=== PATIENT | female | born 1985 | race Two or more races ===

== ENCOUNTER → 2016-04-15 | Outpatient (CLI) | payer MEDICAID ==
[2016-04-15 14:31] LABS: APPEARANCE,URINE SLIGHTLY-CLOUDY; BILIRUBIN,URINE NEGATIVE (NEGATIVE); GLUCOSE, URINE NEGATIVE (NEGATIVE); KETONES,URINE TRACE mg/dL (NEGATIVE); LEUKOCYTE ESTERASE,URINE TRACE (NEGATIVE); NITRITE,URINE NEGATIVE (NEGATIVE); PROTEIN,URINE 30 mg/dL (NEGATIVE); URINE SPECIFIC GRAVITY 1.019; UROBILINOGEN,URINE NEGATIVE mg/dL (<2.0)
[2016-04-15 15:03] LABS: ANION GAP 14 (5-19); BLOOD UREA NITROGEN 7 mg/dL (7-20); CALCIUM 9.5 mg/dL (8.4-10.2); CARBON DIOXIDE 21 mmol/L (22-30); CHLORIDE 103 mmol/L (98-107); CREATININE RESULT 0.42 mg/dL (0.52-1.25); GLUCOSE 100 mg/dL (75-110); POTASSIUM 3.6 mmol/L (3.6-5.0); SODIUM 138.1 mmol/L (137-145)
[2016-04-17 09:40] LABS: CREATININE URINE 157.3 mg/dL (Not Estab.)
== END ==
LOC: OD 13:32
PROVIDERS: ATTEND Internal Medicine Nephrology
DX: N07.9 Hereditary nephropathy, not elsewhere classified with unspecified morphologic lesions (principal); N18.1 Chronic kidney disease, stage 1; R80.1 Persistent proteinuria, unspecified; R31.9 Hematuria, unspecified
CPT/HCPCS: 36415; 80048; 81001; 82570; 84156

== ENCOUNTER 2016-04-30 12:05 | Outpatient (CLI) | payer MEDICAID ==
[~2016-04-30 12:05] MED LIST: FERRIC CARBOXYMALTOSE 750 MG in NORMAL SALINE 250 ML IV PRN; NORMAL SALINE 250 ML IV PRN
[2016-04-30 12:48] VITALS: BP 110/67
== END 2016-04-30 13:22 | disposition home or self-care (01) ==
LOC: II 12:05 → 5TH 12:11 → II 13:22
PROVIDERS: ATTEND Internal Medicine
PROC: 3E033GC Introduction of Other Therapeutic Substance into Peripheral Vein, Percutaneous Approach (ICD-10-PCS; principal; 2016-04-30)
DX: D50.8 Other iron deficiency anemias (principal); K90.9 Intestinal malabsorption, unspecified
CPT/HCPCS: 96365; J7050; J1439; 96367

== ENCOUNTER 2016-05-07 13:20 | Outpatient (CLI) | payer MEDICAID ==
[2016-05-07 13:28] VITALS: BP 111/60
== END 2016-05-07 13:53 | disposition home or self-care (01) ==
LOC: II 13:20 → 5TH 13:28 → II 13:53
PROVIDERS: ATTEND Internal Medicine
PROC: 3E033GC Introduction of Other Therapeutic Substance into Peripheral Vein, Percutaneous Approach (ICD-10-PCS; principal; 2016-05-07)
DX: D50.8 Other iron deficiency anemias (principal); K90.9 Intestinal malabsorption, unspecified
CPT/HCPCS: 96365; J7050; J1439

== ENCOUNTER 2016-06-13 11:35 | Outpatient (CLI) | payer MEDICAID ==
[2016-06-13 12:30] LABS: APPEARANCE,URINE CLEAR; BILIRUBIN,URINE NEGATIVE (NEGATIVE); GLUCOSE, URINE NEGATIVE (NEGATIVE); KETONES,URINE NEGATIVE (NEGATIVE); LEUKOCYTE ESTERASE,URINE NEGATIVE (NEGATIVE); NITRITE,URINE NEGATIVE (NEGATIVE); PROTEIN,URINE NEGATIVE (NEGATIVE); URINE SPECIFIC GRAVITY 1.013; UROBILINOGEN,URINE NEGATIVE mg/dL (<2.0)
[2016-06-13 12:44] LABS: URINE BARBITURATES SCREEN NEGATIVE; URINE METHADONE SCREEN NEGATIVE; URINE OPIATES LOW NEGATIVE; URINE PHENCYCLIDINE SCREEN NEGATIVE
--- NOTE | 2016-06-13 13:15 | Non Stress Test Report ---
Non Stress Test Datetime Report Generated by CPN: 06/13/2016 13:14 DEMOGRAPHIC EGA NST: 32.5 INDICATION Indication for Study: Ordered by Provider MONITORING Monitor Explained: Monitor Explained; Test Explained; Patient Verbalized Understanding Time on Monitor: 06/13/2016 11:56 Time off Monitor: 06/13/2016 12:53 NST Duration: 57 NST INTERVENTIONS NST Interventions: PO Hydration; Reposition Patient Physician Notified NST: H. Louis, CNM BABY A: [id number] BABY A Movement : Present Contraction Frequency : Irregular FHR Baseline : 135 Accelerations : 15X15 Decelerations : None Variability : Moderate 6-25bpm NST Review: Meets Criteria for Reactive NST NST Review and Verified By : Amina Eckert RN NST REPORT Report Trigger: Send Report
== END 2016-06-13 13:00 | disposition home or self-care (01) ==
LOC: LC 11:35
PROVIDERS: ATTEND Obstetrics & Gynecology
PROC: 4A1HXCZ Monitoring of Products of Conception, Cardiac Rate, External Approach (ICD-10-PCS; principal; 2016-06-13)
DX: O47.03 False labor before 37 completed weeks of gestation, third trimester (principal); Z3A.32 32 weeks gestation of pregnancy
CPT/HCPCS: 59025; 80307; 81001

== ENCOUNTER 2016-06-20 12:13 | Outpatient (CLI) | payer MEDICAID ==
--- NOTE | 2016-06-20 12:52 | Non Stress Test Report ---
Non Stress Test Datetime Report Generated by CPN: 06/20/2016 12:52 DEMOGRAPHIC EGA NST: 33.5 INDICATION Indication for Study (NST) Other: GDM MONITORING Monitor Explained: Monitor Explained; Test Explained; Patient Verbalized Understanding Time on Monitor: 06/20/2016 12:27 Time off Monitor: 06/20/2016 12:47 NST Duration: 20 NST INTERVENTIONS NST Interventions: PO Hydration Physician Notified NST: C. Mireles CNM BABY A Movement : Present Contraction Frequency : x2 with irritability FHR Baseline : 140 Accelerations : 15X15 Decelerations : None Variability : Moderate 6-25bpm NST Review: Meets Criteria for Reactive NST NST Review and Verified By : AAntonino Peterson RN NST Results: Reactive NST REPORT Report Trigger: Send Report
--- NOTE | 2016-06-20 15:54 | L&D Discharge Summary ---
OB Discharge Summary Datetime Report Generated by CPN: 06/20/2016 15:54 DISCHARGE DIAGNOSIS Diagnosis/Symptoms: Reassuring Surveillance - Annotate Details Diagnoses/Symptoms Other: Reactive NST Gestation: 32.5 Number of Babies in Womb: 1 Parity: 4 DIET/ACTIVITY/RESTRICTIONS Diet: Regular Activity: Normal Activity TEACHING/INSTRUCTIONS/REFERRALS Instructions Given To: Patient Instructions Understood: Patient Verbalized Understanding Referrals: None Educational Materials- Other: kick counts DISCHARGE INFORMATION Discharged AMA: No Discharge Date/Time: 06/20/2016 12:47 Discharged To: Home Discharge Provider Name: C. Mireles CNM Accompanied By: self Discharge Method: Ambulatory Condition: Stable FOLLOW UP INFORMATION Follow Up With: [facility] Follow Up On: As Scheduled Follow Up Phone Number: [facility] -
--- NOTE | 2016-06-25 22:49 | L&D Discharge Summary ---
OB Discharge Summary Datetime Report Generated by CPN: 06/25/2016 22:45 DISCHARGE DIAGNOSIS Diagnosis/Symptoms: Reassuring Surveillance - Annotate Details Diagnoses/Symptoms Other: Reactive NST Gestation: 33.5 Number of Babies in Womb: 1 Parity: 4 DIET/ACTIVITY/RESTRICTIONS Diet: Regular Activity: Normal Activity TEACHING/INSTRUCTIONS/REFERRALS Instructions Given To: Patient Instructions Understood: Patient Verbalized Understanding Referrals: None Educational Materials- Other: kick counts DISCHARGE INFORMATION Discharged AMA: No Discharge Date/Time: 06/20/2016 12:47 Discharged To: Home Discharge Provider Name: C. Mireles CNM Accompanied By: self Discharge Method: Ambulatory Condition: Stable FOLLOW UP INFORMATION Follow Up With: [facility] Follow Up On: As Scheduled Follow Up Phone Number: [facility] -
--- NOTE | 2016-06-25 22:49 | L&D General Admission ---
General Admit Datetime Report Generated by CPN: 06/25/2016 22:45 INFORMATION Patient Age: 31 (06/13/2016 11:35:QS system process) EDC: 08/03/2016 00:00 (06/13/2016 11:42:Mariely Carver RN) : 5 (06/13/2016 11:42:Mariely Carver RN) Para: 4 (06/13/2016 11:42:Mariely Carver RN) Term: 4 (06/13/2016 11:42:Mariely Carver RN) : 0 (06/13/2016 11:42:Mariely Carver RN) Spontaneous Abortions: 0 (06/13/2016 11:42:Mariely Carver RN) Induced Abortions: 0 (06/13/2016 11:42:Mariely Carver RN) Livin (06/13/2016 11:42:Mariely Carver RN) Cesareans: 0 (06/13/2016 11:42:Mariely Carver RN) VBACs: 0 (06/13/2016 11:42:Mariely Carver RN) Ectopic: 0 (06/13/2016 11:42:Mariely Carver RN) Multiple Births: 0 (06/13/2016 11:42:Mariely Carver RN) Baby, Number in Womb: 1 (06/13/2016 11:42:Mariely Carver RN) CARE Primary Ssis Ssrs Developer: [facility] (06/13/2016 11:42:Mariely Carver RN) Adequate Care: Yes (06/13/2016 11:42:Mariely Carver RN) Height (in): 63 (06/20/2016 12:34:QS system process) Height (in): 63 (06/13/2016 12:31:QS system process) Height (in): 63 (06/13/2016 11:50:QS system process) ALLERGIES Medication Allergy: No (06/13/2016 11:42:Mariely Carver RN) Medication Allergies: No Known Allergies (06/20/2016) (06/20/2016 12:33:QS system process) Medication Allergies: No Known Allergies (07/16/2010) (06/13/2016 11:35:QS system process) Latex Allergy: No Latex Allergies (06/13/2016 11:42:Mariely Carver RN) COMMUNICATION Primary Language: Syrian (06/13/2016 11:42:Mariely Carver RN) DEMOGRAPHICS Address: [address] [place] [id number] (06/13/2016 11:35:QS system process) Zipcode: [address] (06/13/2016 11:35:QS system process) Home (06/13/2016 11:35:QS system process) SSN: [id number] (06/13/2016 11:35:QS system process) Next of Kin Name: YENY ACEVEDO (06/13/2016 11:35:QS system process) Next of Kin (06/13/2016 11:35:QS system process) Next of Kin Relationship: SPO (06/13/2016 11:35:QS system process) Date of : 1985 (06/13/2016 11:35:QS system process) Marital Status: (06/13/2016 11:35:QS system process) Sex: Female (06/13/2016 11:35:QS system process) Race: Other (06/13/2016 11:35:QS system process) Ethnicity: or (06/13/2016 11:35:QS system process) Pentecostalism: None (06/13/2016 11:35:QS system process) DRUG AND ALCOHOL USE Alcohol: No (06/13/2016 11:42:Mariely Carver RN) Cigarettes: Never Smoker. [id number] (06/13/2016 11:42:Mariely Carver RN) Marijuana: No (06/13/2016 11:42:Mariely Carver RN) Cocaine: No (06/13/2016 11:42:Mariely Carver RN) Other Illicit Drugs: No (06/13/2016 11:42:Mariely Carver RN)
--- NOTE | 2016-06-26 04:49 | L&D Discharge Summary ---
OB Discharge Summary Datetime Report Generated by CPN: 06/26/2016 04:46 DISCHARGE DIAGNOSIS Diagnosis/Symptoms: Reassuring Surveillance - Annotate Details Diagnoses/Symptoms Other: Reactive NST Gestation: 33.5 Number of Babies in Womb: 1 Parity: 4 DIET/ACTIVITY/RESTRICTIONS Diet: Regular Activity: Normal Activity TEACHING/INSTRUCTIONS/REFERRALS Instructions Given To: Patient Instructions Understood: Patient Verbalized Understanding Referrals: None Educational Materials- Other: kick counts DISCHARGE INFORMATION Discharged AMA: No Discharge Date/Time: 06/20/2016 12:47 Discharged To: Home Discharge Provider Name: C. Mireles CNM Accompanied By: self Discharge Method: Ambulatory Condition: Stable FOLLOW UP INFORMATION Follow Up With: [facility] Follow Up On: As Scheduled Follow Up Phone Number: [facility] -
--- NOTE | 2016-06-26 04:49 | L&D General Admission ---
General Admit Datetime Report Generated by CPN: 06/26/2016 04:46 INFORMATION Patient Age: 31 (06/13/2016 11:35:QS system process) EDC: 08/03/2016 00:00 (06/13/2016 11:42:Mariely Carver RN) : 5 (06/13/2016 11:42:Mariely Carver RN) Para: 4 (06/13/2016 11:42:Mariely Carver RN) Term: 4 (06/13/2016 11:42:Mariely Carver RN) : 0 (06/13/2016 11:42:Mariely Carver RN) Spontaneous Abortions: 0 (06/13/2016 11:42:Mariely Carver RN) Induced Abortions: 0 (06/13/2016 11:42:Mariely Carver RN) Livin (06/13/2016 11:42:Mariely Carver RN) Cesareans: 0 (06/13/2016 11:42:Mariely Carver RN) VBACs: 0 (06/13/2016 11:42:Mariely Carver RN) Ectopic: 0 (06/13/2016 11:42:Mariely Carver RN) Multiple Births: 0 (06/13/2016 11:42:Mariely Carver RN) Baby, Number in Womb: 1 (06/13/2016 11:42:Mariely Carver RN) CARE Primary Circus Trainer: [facility] (06/13/2016 11:42:Mariely Carver RN) Adequate Care: Yes (06/13/2016 11:42:Mariely Carver RN) Height (in): 63 (06/20/2016 12:34:QS system process) Height (in): 63 (06/13/2016 12:31:QS system process) Height (in): 63 (06/13/2016 11:50:QS system process) ALLERGIES Medication Allergy: No (06/13/2016 11:42:Mariely Carver RN) Medication Allergies: No Known Allergies (06/20/2016) (06/20/2016 12:33:QS system process) Medication Allergies: No Known Allergies (07/16/2010) (06/13/2016 11:35:QS system process) Latex Allergy: No Latex Allergies (06/13/2016 11:42:Mariely Carver RN) COMMUNICATION Primary Language: Turkmen (06/13/2016 11:42:Mariely Carver RN) DEMOGRAPHICS Address: [address] [place] [id number] (06/13/2016 11:35:QS system process) Zipcode: [address] (06/13/2016 11:35:QS system process) Home (06/13/2016 11:35:QS system process) SSN: [id number] (06/13/2016 11:35:QS system process) Next of Kin Name: YENY ACEVEDO (06/13/2016 11:35:QS system process) Next of Kin (06/13/2016 11:35:QS system process) Next of Kin Relationship: SPO (06/13/2016 11:35:QS system process) Date of : 1985 (06/13/2016 11:35:QS system process) Marital Status: (06/13/2016 11:35:QS system process) Sex: Female (06/13/2016 11:35:QS system process) Race: Other (06/13/2016 11:35:QS system process) Ethnicity: or (06/13/2016 11:35:QS system process) Gnosticist: None (06/13/2016 11:35:QS system process) DRUG AND ALCOHOL USE Alcohol: No (06/13/2016 11:42:Mariely Carver RN) Cigarettes: Never Smoker. [id number] (06/13/2016 11:42:Mariely Carver RN) Marijuana: No (06/13/2016 11:42:Mariely Carver RN) Cocaine: No (06/13/2016 11:42:Mariely Carver RN) Other Illicit Drugs: No (06/13/2016 11:42:Mariely Carver RN)
--- NOTE | 2016-06-26 10:49 | L&D Discharge Summary ---
OB Discharge Summary Datetime Report Generated by CPN: 06/26/2016 10:45 DISCHARGE DIAGNOSIS Diagnosis/Symptoms: Reassuring Surveillance - Annotate Details Diagnoses/Symptoms Other: Reactive NST Gestation: 33.5 Number of Babies in Womb: 1 Parity: 4 DIET/ACTIVITY/RESTRICTIONS Diet: Regular Activity: Normal Activity TEACHING/INSTRUCTIONS/REFERRALS Instructions Given To: Patient Instructions Understood: Patient Verbalized Understanding Referrals: None Educational Materials- Other: kick counts DISCHARGE INFORMATION Discharged AMA: No Discharge Date/Time: 06/20/2016 12:47 Discharged To: Home Discharge Provider Name: C. Mireles CNM Accompanied By: self Discharge Method: Ambulatory Condition: Stable FOLLOW UP INFORMATION Follow Up With: [facility] Follow Up On: As Scheduled Follow Up Phone Number: [facility] -
--- NOTE | 2016-06-26 10:49 | L&D General Admission ---
General Admit Datetime Report Generated by CPN: 06/26/2016 10:45 INFORMATION Patient Age: 31 (06/13/2016 11:35:QS system process) EDC: 08/03/2016 00:00 (06/13/2016 11:42:Mariely Carver RN) : 5 (06/13/2016 11:42:Mariely Carver RN) Para: 4 (06/13/2016 11:42:Mariely Carver RN) Term: 4 (06/13/2016 11:42:Mariely Carver RN) : 0 (06/13/2016 11:42:Mariely Carver RN) Spontaneous Abortions: 0 (06/13/2016 11:42:Mariely Carver RN) Induced Abortions: 0 (06/13/2016 11:42:Mariely Carver RN) Livin (06/13/2016 11:42:Mariely Carver RN) Cesareans: 0 (06/13/2016 11:42:Mariely Carver RN) VBACs: 0 (06/13/2016 11:42:Mariely Carver RN) Ectopic: 0 (06/13/2016 11:42:Mariely Carver RN) Multiple Births: 0 (06/13/2016 11:42:Mariely Carver RN) Baby, Number in Womb: 1 (06/13/2016 11:42:Mariely Carver RN) CARE Primary Cellular Phone Repairer: [facility] (06/13/2016 11:42:Mariely Carver RN) Adequate Care: Yes (06/13/2016 11:42:Mariely Carver RN) Height (in): 63 (06/20/2016 12:34:QS system process) Height (in): 63 (06/13/2016 12:31:QS system process) Height (in): 63 (06/13/2016 11:50:QS system process) ALLERGIES Medication Allergy: No (06/13/2016 11:42:Mariely Carver RN) Medication Allergies: No Known Allergies (06/20/2016) (06/20/2016 12:33:QS system process) Medication Allergies: No Known Allergies (07/16/2010) (06/13/2016 11:35:QS system process) Latex Allergy: No Latex Allergies (06/13/2016 11:42:Mariely Carver RN) COMMUNICATION Primary Language: Israeli (06/13/2016 11:42:Mariely Carver RN) DEMOGRAPHICS Address: [address] [place] [address] (06/13/2016 11:35:QS system process) Zipcode: [address] (06/13/2016 11:35:QS system process) Home (06/13/2016 11:35:QS system process) SSN: [id number] (06/13/2016 11:35:QS system process) Next of Kin Name: YENY ACEVEDO (06/13/2016 11:35:QS system process) Next of Kin (06/13/2016 11:35:QS system process) Next of Kin Relationship: SPO (06/13/2016 11:35:QS system process) Date of : 1985 (06/13/2016 11:35:QS system process) Marital Status: (06/13/2016 11:35:QS system process) Sex: Female (06/13/2016 11:35:QS system process) Race: Other (06/13/2016 11:35:QS system process) Ethnicity: or (06/13/2016 11:35:QS system process) Mandaeism: None (06/13/2016 11:35:QS system process) DRUG AND ALCOHOL USE Alcohol: No (06/13/2016 11:42:Mariely Carver RN) Cigarettes: Never Smoker. [id number] (06/13/2016 11:42:Mariely Carver RN) Marijuana: No (06/13/2016 11:42:Mariely Carver RN) Cocaine: No (06/13/2016 11:42:Mariely Carver RN) Other Illicit Drugs: No (06/13/2016 11:42:Mariely Carver RN)
== END 2016-06-20 12:50 | disposition home or self-care (01) ==
LOC: LC 12:13
PROVIDERS: ATTEND Obstetrics & Gynecology
PROC: 4A1HXCZ Monitoring of Products of Conception, Cardiac Rate, External Approach (ICD-10-PCS; principal; 2016-06-20)
DX: Z34.93 Encounter for supervision of normal pregnancy, unspecified, third trimester (principal); Z36 Encounter for antenatal screening of mother; Z3A.33 33 weeks gestation of pregnancy
CPT/HCPCS: 59025

== ENCOUNTER 2016-06-26 12:02 | Outpatient (CLI) | payer MEDICAID ==
--- NOTE | 2016-06-26 13:48 | Non Stress Test Report ---
Non Stress Test Datetime Report Generated by CPN: 06/26/2016 13:48 DEMOGRAPHIC EGA NST: 34.4 INDICATION Indication for Study: Diabetes Mellitus; Ordered by Provider MONITORING Monitor Explained: Monitor Explained; Test Explained; Patient Verbalized Understanding Time on Monitor: 06/26/2016 12:21 Time off Monitor: 06/26/2016 13:37 NST Duration: 76 NST INTERVENTIONS NST Interventions: PO Hydration; Reposition Patient Physician Notified NST: P. Torres, CNM BABY A Movement : Present Contraction Frequency : Occassional FHR Baseline : 145 Accelerations : 15X15 Decelerations : None Variability : Moderate 6-25bpm NST Review: Meets Criteria for Reactive NST NST Review and Verified By : Jens Masterson RN NST Results: Reactive NST REPORT Report Trigger: Send Report
== END 2016-06-26 13:41 | disposition home or self-care (01) ==
LOC: LC 12:02
PROVIDERS: ATTEND Obstetrics & Gynecology
PROC: 4A1HXCZ Monitoring of Products of Conception, Cardiac Rate, External Approach (ICD-10-PCS; principal; 2016-06-26)
DX: O24.419 Gestational diabetes mellitus in pregnancy, unspecified control (principal); Z3A.34 34 weeks gestation of pregnancy
CPT/HCPCS: 59025; 82962

== ENCOUNTER 2016-07-02 14:23 | Outpatient (CLI) | payer MEDICAID ==
[2016-07-02 14:51] VITALS: BP 118/67
== END 2016-07-02 15:27 | disposition home or self-care (01) ==
LOC: II 14:23 → 5TH 14:24 → II 15:27
PROVIDERS: ATTEND Internal Medicine
PROC: 3E033GC Introduction of Other Therapeutic Substance into Peripheral Vein, Percutaneous Approach (ICD-10-PCS; principal; 2016-07-02)
DX: D50.8 Other iron deficiency anemias (principal); K90.9 Intestinal malabsorption, unspecified
CPT/HCPCS: 96367; J7050; J1439; 96374

== ENCOUNTER 2016-07-03 11:02 | Outpatient (CLI) | payer MEDICAID ==
[2016-07-03 13:01] LABS: APPEARANCE,URINE CLEAR; BILIRUBIN,URINE NEGATIVE (NEGATIVE); GLUCOSE, URINE NEGATIVE (NEGATIVE); KETONES,URINE NEGATIVE (NEGATIVE); LEUKOCYTE ESTERASE,URINE NEGATIVE (NEGATIVE); NITRITE,URINE NEGATIVE (NEGATIVE); PROTEIN,URINE 30 mg/dL (NEGATIVE); UROBILINOGEN,URINE NEGATIVE mg/dL (<2.0)
[2016-07-03 13:19] LABS: URINE BARBITURATES SCREEN NEGATIVE; URINE METHADONE SCREEN NEGATIVE; URINE OPIATES LOW NEGATIVE; URINE PHENCYCLIDINE SCREEN NEGATIVE
== END 2016-07-03 13:21 | disposition home or self-care (01) ==
LOC: LC 11:02
PROVIDERS: ATTEND Student in an Organized Health Care Education/Training Program
PROC: 4A1HXCZ Monitoring of Products of Conception, Cardiac Rate, External Approach (ICD-10-PCS; principal; 2016-07-03)
DX: O47.03 False labor before 37 completed weeks of gestation, third trimester (principal); Z3A.35 35 weeks gestation of pregnancy
CPT/HCPCS: 80307; 81001

== ENCOUNTER 2016-07-09 11:33 | Outpatient (CLI) | payer MEDICAID ==
[2016-07-09 11:57] VITALS: BP 111/60
== END 2016-07-09 13:10 | disposition home or self-care (01) ==
LOC: II 11:33 → 5TH 11:34 → II 13:10
PROVIDERS: ATTEND Internal Medicine
PROC: 3E033GC Introduction of Other Therapeutic Substance into Peripheral Vein, Percutaneous Approach (ICD-10-PCS; principal; 2016-07-09)
DX: D50.8 Other iron deficiency anemias (principal); K90.9 Intestinal malabsorption, unspecified
CPT/HCPCS: 96365; 96367; J7050; J1439

== ENCOUNTER 2016-07-28 07:36 | Inpatient (IN) | payer MEDICAID ==
[2016-07-28] MEDS ORDERED: RINGERS SOLUTION,LACTATED 300 ML IV ONE (08:13)
[2016-07-28] MEDS ORDERED: OXYTOCIN/NORMAL SALINE 1,000 ML IV PRN ×2 (08:13→15:39)
[2016-07-28] MEDS ORDERED: RINGERS SOLUTION,LACTATED 1,000 ML IV PRN (08:13)
[2016-07-28 08:33] LABS: APPEARANCE,URINE SLIGHTLY-CLOUDY; BILIRUBIN,URINE NEGATIVE (NEGATIVE); GLUCOSE, URINE NEGATIVE (NEGATIVE); KETONES,URINE NEGATIVE (NEGATIVE); LEUKOCYTE ESTERASE,URINE NEGATIVE (NEGATIVE); NITRITE,URINE NEGATIVE (NEGATIVE); PROTEIN,URINE 30 mg/dL (NEGATIVE); URINE SPECIFIC GRAVITY 1.016; UROBILINOGEN,URINE NEGATIVE mg/dL (<2.0)
[2016-07-28 09:06] LABS: URINE BARBITURATES SCREEN NEGATIVE; URINE METHADONE SCREEN NEGATIVE; URINE PHENCYCLIDINE SCREEN NEGATIVE
[2016-07-28 09:14] LABS: URINE OPIATES LOW NEGATIVE
[2016-07-28] MEDS ORDERED: OXYTOCIN/NORMAL SALINE 20 UNIT/1,000 ML RTUINJ ONE (09:28)
[2016-07-28 09:40] LABS: ABSOLUTE EOSINOPHILS # (AUTO) 0.1 10^3/uL (0.0-0.6); ABSOLUTE MONOCYTES (AUTO) 0.5 10^3/uL (0.1-1.4); BASOPHILS % (AUTO) 0.3 % (0-2); EOSINOPHILS % (AUTO) 0.7 % (0-6); HEMATOCRIT 34.6 % (36.0-47.0); HEMOGLOBIN 12.2 g/dL (12.0-15.5); LYMPHOCYTES % (AUTO) 23.6 % (13-45); MEAN CORPUSCULAR HEMOGLOBIN 31.1 pg (27.0-33.4); MEAN CORPUSCULAR HGB CONC 35.2 g/dL (32.0-36.0); MEAN CORPUSCULAR VOLUME 88 fl (80-97); MONOCYTES % (AUTO) 5.8 % (3-13); RED BLOOD COUNT 3.91 10^6/uL (3.72-5.28); RED CELL DISTRIBUTION WIDTH 19.1 % (11.5-14.0); SEGMENTED NEUTROPHILS % (AUTO) 69.6 % (42-78); WHITE BLOOD COUNT 8.7 10^3/uL (4.0-10.5)
[2016-07-28] MEDS ORDERED: DIPHENHYDRAMINE HCL 25 MG CAPSULE ONE (10:13)
[2016-07-28] MEDS ORDERED: LIDOCAINE 1% INJ-PF (10 MG/ML) 30 ML SDV ONE (10:52)
[2016-07-28] MEDS ORDERED: BUPIVACAINE HCL 0.25 % INJ/PF (2.5 MG/1 ML) 30 ML VIAL ONE (10:52)
[2016-07-28] MEDS ORDERED: EPHEDRINE SULFATE INJ 50 MG/1 ML AMPULE ONE (10:52)
[2016-07-28] MEDS ORDERED: FENTANYL/BUPIVACAINE/NS/PF 200 MCG/100 ML RTUINJ EPI ONE (10:52)
[2016-07-28] MEDS ORDERED: MISOPROSTOL 0.2 MG TABLET ONE (10:52)
[2016-07-28] MEDS ORDERED: ONDANSETRON HCL INJ/PF 4 MG/2 ML SDV ONE (12:23)
--- NOTE | 2016-07-28 15:27 | Delivery Summary ---
Del Sum A-C Datetime Report Generated by CPN: 07/28/2016 15:27 DELIVERY PERSONNEL DELIVERY PERSONNEL: [phone] Delivery Doctor:: Jim Alonso CNM Labor and Delivery Nurse:: Cayla Dorantes RNsteerer Nurse:: RAQUEL Santos Tech/BINDING MACHINE OPERATOR: Gretchen Loyd CNA II MATERNAL INFORMATION Delivery Anesthesia: Epidural Medications After Delivery: Pitocin Bolus-Please Comment Meds After Delivery Comment: Pitocin 20 units Estimated Blood Loss (ml): 300 Maternal Complications: None Provider Comments: pt with increased pressure delivery of viable female apgars 8/9 bulb suctioned on perineum to abdomen tactile stimulation elicits spont cry cord blood clamped 3VC placenta intact- sent to pathology fundus firm 1st degree repaired with 3.0 chromic under epidural ebl 300 cc hemostasis achieved LABOR SUMMARY EDC: 08/03/2016 00:00 No. Babies in Womb: 1 Attempted: No Labor Anesthesia: Epidural LABOR INFORMATION Reason for Induction: Maternal Diabetes Onset of Labor: 07/28/2016 10:37 Complete Dilatation: 07/28/2016 12:47 Oxytocin: Induction Group B Beta Strep: Negative Antibiotics # of Doses: 0 Antibiotics Time of Last Dose: n/a Name of Antibiotic Given: n/a Steroids Given: None Reason Steroids Not Administered: Not Applicable MEMBRANES Membranes Rupture Method: Spontaneous Rupture of Membranes: 07/28/2016 11:41 Length of Rupture (hr): 1.22 Amniotic Fluid Color: Clear Amniotic Fluid Amount: Small Amniotic Fluid Odor: Normal STAGES OF LABOR Stage 1 hr: 2 Stage 1 min: 10 Stage 2 hr: 0 Stage 2 min: 7 Stage 3 hr: 0 Stage 3 min: 3 Total Time in Labor hr: 2 Total Time in Labor min: 20 VAGINAL DELIVERY Episiotomy: None Laceration Extension: First Degree Laceration Type: Vaginal Laceration Repair: Yes Sponge Count Correct: Yes; Vaginal Sweep Performed Sharps Count Correct: Yes CSECTION DELIVERY Primary Indication: N/A Secondary Indication: N/A CSection Incidence: N/A Labor: N/A Elective: N/A CSection Incision: N/A BABY A INFORMATION Infant Delivery Date/Time: 07/28/2016 12:54 Method of Delivery: Vaginal Born in Route : No : N/A Forceps: N/A Vacuum Extraction: N/A Shoulder Dystocia : No PRESENTATION/POSITION BABY A Presentation: Cephalic Cephalic Presentation: Vertex Vertex Position: Left Occipital Anterior Breech Presentation: N/A PLACENTA INFORMATION BABY A Placenta Delivery Time : 07/28/2016 12:57 Placenta Method of Delivery: Spontaneous Placenta Status: Delivered SCORES BABY A Heart Rate 1 min: >100 bpm Resp Effort 1 min: Good Cry Reflex Irritability 1 min: Cough or Sneeze or Pulls Away Muscle Tone 1 min: Active Motion Color 1 min: Blue/Pale Resuscitation Effort 1 min: Tactile Stimulation SCORE 1 MIN: 8 Heart Rate 5 min: >100 bpm Resp Effort 5 min: Good Cry Reflex Irritability 5 min: Cough or Sneeze or Pulls Away Muscle Tone 5 min: Active Motion Color 5 min: Body [place], Extremities Blue Resuscitation Effort 5 min: Tactile Stimulation SCORE 5 MIN: 9 INFANT INFORMATION BABY A Gestational Age at Delivery: 39.1 Gestational Status: Full Term- 39- 40.6 Weeks Infant Outcome : Liveborn Infant Condition : Stable Infant Sex: Female IDENTIFICATION BABY A Verification Date/Time: 07/28/2016 13:23 ID Band Number: [id number] Mother's Name Verified: Yes RN Verifying Infant: Jens Dorantes, RN, Amina Beaver, RN WEIGHT/LENGTH BABY A Birthweight (gm): 3370 Infant Weight (lb): 7 Infant Weight (oz): 7 Length (in): 20.50 Infant Length (cm): 52.07 CORD INFORMATION BABY A No. Cord Vessels: 3 Nuchal Cord : N/A Cord Blood Taken: Yes-For Eval (Mom's Blood Type - or O+) Infant Suction: Mouth; Nose ASSESSMENT BABY A Infant Complications: None Physical Findings at Delivery: Within Normal Limits Infant Respirations: Appears Normal Skin to Skin: Yes Care By: B. Baidy, RN Transferred To: Remains with Mother BABY B INFORMATION : N/A SIGNATURES Assignment: Ilana Stinson MD Signature: with User ID: [email or web address] : with User ID: [email or web address]
[2016-07-28] MEDS ORDERED: DIBUCAINE 1% OINTMENT 28 GM TP PRN (15:39)
[2016-07-28] MEDS ORDERED: MEASLES,MUMPS&RUBELLA VACC/PF 0.5 ML VIAL SUBCUT PRN (15:39)
[2016-07-28] MEDS ORDERED: DIPH/PERTUSS(ACELL)/TETANUS VAC/PF 0.5 ML SYR (>=10YO) IM PRN (15:39)
[2016-07-28] MEDS ORDERED: ZOLPIDEM TARTRATE 5 MG TABLET PO PRN (15:39)
[2016-07-28] MEDS ORDERED: BENZOCAINE/MENTHOL AEROSOL SPRAY 56 ML TOP PRN (15:39)
--- NOTE | 2016-07-28 16:26 | Admission Physical ---
Datetime Report Generated by CPN: 07/28/2016 16:26 CURRENT ADMISSION Chief Complaint: Scheduled Induction of Labor Indication for Induction: Maternal Diabetes Admit Plan: Admit to Unit; Initiate Labor Protocol; Initiate Labor Induction Protocol ALLERGIES Medication Allergies: No Medication Allergies: No Known Allergies (07/28/2016) Medication Allergies: No Known Allergies (07/03/2016) Medication Allergies: No Known Allergies (06/20/2016) Medication Allergies: No Known Allergies (07/16/2010) Latex: No Latex Allergies OBSTETRICAL HISTORY EDC: 08/03/2016 00:00 : 5 Para: 4 Term: 4 : 0 SAB: 0 IAB: 0 Ectopic: 0 Livin Cesareans: 0 VBACs: 0 Multiple Births: 0 Gestational Diabetes: Yes Rh Sensitization: No Incompetent Cervix: No JESS: No Infertility: No ART Treatment: No Uterine Anomaly: No IUGR: No Hx Previous C/S: No Macrosomia: No Hx Loss/Stillborn: No PIH: No Hx : No Placenta Previa/Abruption: No Depression/PP Depression: No PTL/PROM: No Post Hemorrhage: No Current Procedures: Ultrasound; NST Obstetrical History Comments: g1- 2006, 39+2, male, , 7lb 13oz g2-2009, 40+5, male, , 8lb g3-2012, 37, male, , 7lb g4-2014, 38, male, , 7lb g5- current , gdm on glyburide, hyperemesis SEE RECORDS Alcohol: No Marijuana : No Cocaine: No Other Illicit Drugs: No Cigarettes: Never Smoker. [id number] MEDICAL HISTORY Diabetes: No Blood Transfusion: No Pulmonary Disease (Asthma, TB): No Breast Disease: No Hypertension: No Court Manager Surgery: No Heart Disease: No Hosp/Surgery: Yes Autoimmune Disorder: No Anesthetic Complications: No Kidney Disease: Yes Abnormal Pap Smear: No Neuro/Epilepsy: No Psychiatric Disorders: No Other Medical Diseases: No Hepatitis/Liver Disease: No Significant Family History: No Varicosities/Phlebitis: No Trauma/Violence : No Thyroid Dysfunction: No Medical History Comments: IGA neuropathy, anemia, appy, frequent uti, kidney biopsy, childbirth x 4 INFECTIOUS HISTORY Gonorrhea: No Genital Herpes: No Chlamydia: No Tuberculosis: No Syphilis: No Hepatitis: No HIV/AIDS Exposure: No Rash or Viral Illness: No HPV: No PHYSICAL EXAM General: Normal HEENT: Normal Neurologic: Normal Thyroid: Normal Heart: Normal Lungs: Normal Breast: Normal Back: Normal Abdomen: Normal Genitourinary Exam: Normal Extremities: Normal DTRs: Normal Pelvic Type: Adequate VAGINAL EXAM Dilatation: 3 Effacement: 50 Station: -2 MEMBRANES Membranes: Intact FETUS A EGA: 39.1 Monitoring: External US Accelerations: 15X15 Decelerations: None FHR Category: Category I Presentation: Vertex Admit Comment: 31 yo admitted for IOL secondary to A2GDM uncontrolled nkda EGA 38.1 EDC 08/07/16 Term A2GDM- uncontrolled Hyperthyroidism cervix- /-2 abdomen nontender FHTS reactive and cat 1 attempt to rupture- start pitocin per protocol will attempt to rupture once contractions are adequate. rbs 126 poc reviewed with pt anticipate PLANS FOR LABOR AND DELIVERY Labor and Delivery: None Pain Management: Epidural Feeding Preference: Breast Benefit of Breast Feed Discussed: Yes Circumcision: Yes INFORMED CONSENT Informed Consent Obtained: Vaginal Delivery; Induction of Labor; Risks, Benefits and Alternatives Discussed Assignment: Ilana Stinson MD Signature: with User ID: [email or web address] Signature: with User ID: [email or web address] : with User ID: [email or web address] : with User ID: [email or web address]
[2016-07-28] MEDS: DOCUSATE SODIUM 100 MG CAPSULE PO SCH (19:58)
[2016-07-28] MEDS: FERROUS SULFATE 325 MG TABLET PO SCH (19:58)
[2016-07-28] MEDS ORDERED: ACETAMINOPHEN WITH CODEINE #3 TABLET PO PRN (20:09)
[2016-07-28] MEDS: ACETAMINOPHEN WITH CODEINE #3 TABLET PO PRN (20:23)
[2016-07-28] MEDS ORDERED: IBUPROFEN 800 MG TABLET PO SCH (22:00)
[2016-07-29] MEDS: ACETAMINOPHEN WITH CODEINE #3 TABLET PO PRN ×4 (00:36→19:39)
[2016-07-29 07:33] LABS: HEMATOCRIT 31.9 % (36.0-47.0); HGB HCT DIFFERENCE 1.1; MEAN CORPUSCULAR HEMOGLOBIN 30.7 pg (27.0-33.4); MEAN CORPUSCULAR HGB CONC 34.4 g/dL (32.0-36.0); MEAN CORPUSCULAR VOLUME 89 fl (80-97); RED BLOOD COUNT 3.58 10^6/uL (3.72-5.28); RED CELL DISTRIBUTION WIDTH 19.2 % (11.5-14.0); WHITE BLOOD COUNT 10.3 10^3/uL (4.0-10.5)
[2016-07-29] MEDS: DOCUSATE SODIUM 100 MG CAPSULE PO SCH ×2 (10:13→18:02)
[2016-07-29] MEDS: SENNOSIDES/DOCUSATE 8.6-50 MG 1 EACH TABLET PO SCH (10:14)
[2016-07-29] MEDS: FERROUS SULFATE 325 MG TABLET PO SCH ×2 (10:15→18:05)
[2016-07-29] MEDS: PRENATAL VITAMIN W-O CA NO5/FE FUMARATE/FA CAPSULE PO SCH (10:15)
[2016-07-29 19:51] VITALS: BP 113/54
[2016-07-30] MEDS: ACETAMINOPHEN WITH CODEINE #3 TABLET PO PRN (03:42)
[2016-07-30] MEDS ORDERED: FENTANYL CITRATE INJ/PF 100 MCG/2 ML AMPUL ONE (07:20)
[2016-07-30] MEDS ORDERED: MIDAZOLAM 2 MG/2 ML INJ ONE (07:20)
[2016-07-30] MEDS ORDERED: PROPOFOL INJ 200 MG/20 ML VIAL IV ONE (07:21)
[2016-07-30] MEDS ORDERED: CEFAZOLIN INJ 1 GM VIAL ONE (09:44)
[2016-07-30] MEDS: PRENATAL VITAMIN W-O CA NO5/FE FUMARATE/FA CAPSULE PO SCH (10:00)
[2016-07-30] MEDS: DOCUSATE SODIUM 100 MG CAPSULE PO SCH ×2 (10:00→18:00)
[2016-07-30] MEDS: SENNOSIDES/DOCUSATE 8.6-50 MG 1 EACH TABLET PO SCH (10:00)
[2016-07-30] MEDS: FERROUS SULFATE 325 MG TABLET PO SCH ×2 (10:00→18:00)
[2016-07-30] MEDS ORDERED: BUPIVACAINE HCL 0.25 % INJ/PF (2.5 MG/1 ML) 30 ML VIAL ONE (10:02)
[2016-07-30] MEDS ORDERED: IBUPROFEN INJ 800 MG/8 ML VIAL IV ONE (10:32)
[2016-07-30] MEDS ORDERED: DEXAMETHASONE SOD PHOSPHATE INJ 4 MG/1 ML VIAL ONE (19:16)
[2016-07-30] MEDS ORDERED: SUCCINYLCHOLINE CHLORIDE INJ 200 MG/10 ML VIAL ONE (19:16)
[2016-07-30] MEDS ORDERED: ONDANSETRON HCL INJ/PF 4 MG/2 ML SDV ONE (19:16)
[2016-07-30] MEDS ORDERED: LIDOCAINE 2% INJ-PF (20 MG/ML) 10 ML AMPUL ONE (19:16)
[2016-07-30] MEDS ORDERED: OXYCODONE-ACETAMINOPHEN 5-325 MG TABLET PO PRN ×2 (19:17→19:18)
[2016-07-30] MEDS ORDERED: ONDANSETRON 4 MG TAB.RAPDIS PO PRN (19:18)
[2016-07-30] MEDS ORDERED: RINGERS SOLUTION,LACTATED 1,000 ML IV PRN (19:39)
--- NOTE | 2016-07-30 22:52 | OPERATIVE REPORT E ---
Operative Report NAME: TEA ACEVEDO : 1985 AGE: 31Y DATE OF SURGERY: ROOM: 222 PREOPERATIVE DIAGNOSIS: Multiparous patient with undesired fertility and desire for permanent sterilization with tubal ligation. POSTOPERATIVE DIAGNOSIS: Multiparous patient with undesired fertility and desire for permanent sterilization with tubal ligation. OPERATION: tubal ligation with Filshie clips. SURGEON: SALVATORE SCOTT M.D. ANESTHESIA: General endotracheal. ESTIMATED BLOOD LOSS: 3 mL. SPECIMEN TO PATHOLOGY: None. FINDINGS: Normal uterus, tubes, and ovaries. PROCEDURE: After discussing risks, benefits, and alternatives of the procedure and obtaining informed consent, the patient was taken to the operating room where general anesthesia was achieved. She was prepped and draped. She was positioned in the dorsal supine position, and prepped and draped in the usual standard fashion. The umbilicus was elevated with Allis clamps, and 0.25% Marcaine, approximately 1 mL to 1.5 mL, was injected at the site of incision. A skin incision was made vertically within the umbilical fold. The fascia was grasped with Kochers and elevated. The fascia and peritoneal cavity were entered sharply with Lara scissors under direct visualization. Next, [place] retractors were used to visualize the fallopian tubes. Each fallopian tube was grasped with a Daya and identified out to its fimbriated ends. A Filshie clip was placed across the isthmic portion of each fallopian tube. The fascia was then closed with #1 Vicryl. Skin was closed in a subcuticular fashion with 4-0 Vicryl. An OpSite dressing was applied. Patient was awakened from anesthesia and taken to recovery in stable condition. All sponge, lap, needle, and instrument counts were correct x2. DICTATING PHYSICIAN: SALVATORE SCOTT M.D. [id number] PHY#: [id number] ID: [id number] JOB#: [id number] ACCT: [id number] cc: >
== END 2016-07-30 19:15 | disposition home or self-care (01) | DRG 767 ==
LOC: LR 07:36 → 2S 16:23
PROVIDERS: ADMIT Obstetrics & Gynecology; ATTEND Specialist
PROC: 10E0XZZ Delivery of Products of Conception, External Approach (ICD-10-PCS; principal; 2016-07-28)
PROC: 0HQ9XZZ Repair Perineum Skin, External Approach (ICD-10-PCS; 2016-07-28)
PROC: 4A1HXCZ Monitoring of Products of Conception, Cardiac Rate, External Approach (ICD-10-PCS; 2016-07-28)
PROC: 0UL70CZ Occlusion of Bilateral Fallopian Tubes with Extraluminal Device, Open Approach (ICD-10-PCS; 2016-07-30)
DX: O24.425 Gestational diabetes mellitus in childbirth, controlled by oral hypoglycemic drugs (principal); O70.0 First degree perineal laceration during delivery; O99.284 Endocrine, nutritional and metabolic diseases complicating childbirth; E05.90 Thyrotoxicosis, unspecified without thyrotoxic crisis or storm; Z3A.39 39 weeks gestation of pregnancy; Z37.0 Single live birth; Z30.2 Encounter for sterilization
CPT/HCPCS: 36415; 80307; 81005; 82962; 85025; 85027; 851; 86592; 86850; 86900; 86901; 88307; J0330; J0690; J1100; J1741; J2250; J2405; J2590; J2704; J3010; J3490

== ENCOUNTER → 2016-10-16 | Outpatient (CLI) | payer MEDICAID ==
[2016-10-16 14:53] LABS: APPEARANCE,URINE SLIGHTLY-CLOUDY; BILIRUBIN,URINE NEGATIVE (NEGATIVE); GLUCOSE, URINE NEGATIVE (NEGATIVE); KETONES,URINE NEGATIVE (NEGATIVE); LEUKOCYTE ESTERASE,URINE NEGATIVE (NEGATIVE); NITRITE,URINE NEGATIVE (NEGATIVE); PROTEIN,URINE 100 mg/dL (NEGATIVE); URINE SPECIFIC GRAVITY 1.025; UROBILINOGEN,URINE NEGATIVE mg/dL (<2.0)
[2016-10-16 15:14] LABS: ANION GAP 14 (5-19); BLOOD UREA NITROGEN 10 mg/dL (7-20); CALCIUM 9.9 mg/dL (8.4-10.2); CARBON DIOXIDE 28 mmol/L (22-30); CHLORIDE 102 mmol/L (98-107); CREATININE RESULT 0.56 mg/dL (0.52-1.25); GLUCOSE 103 mg/dL (75-110); POTASSIUM 3.6 mmol/L (3.6-5.0); SODIUM 143.6 mmol/L (137-145)
[2016-10-16 15:15] LABS: URINE PROTEIN 94.7 mg/dL (<12)
== END ==
LOC: OD 14:05
PROVIDERS: ATTEND Internal Medicine Nephrology
DX: N18.1 Chronic kidney disease, stage 1 (principal); R80.1 Persistent proteinuria, unspecified; R31.9 Hematuria, unspecified
CPT/HCPCS: 36415; 80048; 81001; 82570; 84156

== ENCOUNTER → 2017-02-10 | Outpatient (CLI) | payer MEDICAID ==
[2017-02-10 16:54] LABS: APPEARANCE,URINE SLIGHTLY-CLOUDY; BILIRUBIN,URINE NEGATIVE (NEGATIVE); GLUCOSE, URINE NEGATIVE (NEGATIVE); KETONES,URINE NEGATIVE (NEGATIVE); LEUKOCYTE ESTERASE,URINE TRACE (NEGATIVE); NITRITE,URINE NEGATIVE (NEGATIVE); PROTEIN,URINE >=500 mg/dL (NEGATIVE); URINE SPECIFIC GRAVITY 1.031; UROBILINOGEN,URINE NEGATIVE mg/dL (<2.0)
[2017-02-10 17:02] LABS: ALBUMIN 4.8 g/dL (3.5-5.0); ANION GAP 16 (5-19); BLOOD UREA NITROGEN 10 mg/dL (7-20); CALCIUM 9.9 mg/dL (8.4-10.2); CARBON DIOXIDE 27 mmol/L (22-30); CHLORIDE 100 mmol/L (98-107); CREATININE RESULT 0.68 mg/dL (0.52-1.25); GLUCOSE 154 mg/dL (75-110); POTASSIUM 3.6 mmol/L (3.6-5.0); SODIUM 143.1 mmol/L (137-145)
[2017-02-10 17:15] LABS: URINE PROTEIN 189.4 mg/dL (<12)
[2017-02-10 17:45] LABS: URINE CREATININE 360.5 mg/dL (16-327)
== END ==
LOC: OD 15:40
PROVIDERS: ATTEND Internal Medicine Nephrology
DX: N18.1 Chronic kidney disease, stage 1 (principal); R80.1 Persistent proteinuria, unspecified; D50.9 Iron deficiency anemia, unspecified
CPT/HCPCS: 36415; 80048; 81001; 82040; 82570; 84156

== ENCOUNTER → 2017-07-01 | Outpatient (CLI) | payer MEDICAID ==
--- NOTE | 2017-07-01 10:45 | RADIOLOGY REPORT (SQ) ---
EXAM DESCRIPTION: U/S ABDOMEN LIMITED W/O DOP COMPLETED DATE/TIME: 07/01/2017 9:28 am REASON FOR STUDY: RUQ PAIN (R10.11) R10.11 RIGHT UPPER QUADRANT PAIN COMPARISON: CT from 2010. TECHNIQUE: Dynamic and static grayscale images acquired of the abdomen and recorded on PACS. Additio nal selected color Doppler and spectral images recorded. LIMITATIONS: None. FINDINGS: PANCREAS: No masses. Visualized pancreatic duct normal caliber. LIVER: Mildly enlarged, almost 19 cm. Heterogeneous echo pattern with increased echogenicity general ly, likely reflecting steatosis. No focal lesion detected. LIVER VASCULATURE: Normal directional flow of the main portal vein and hepatic veins. GALLBLADDER: Stones are present, echogenic shadowing foci without gross wall thickening or pericholec ystic fluid. ULTRASOUND-DETECTED BARNES'S SIGN: Negative. INTRAHEPATIC DUCTS AND COMMON DUCT: CBD and intrahepatic ducts normal caliber. No filling defects. INFERIOR VENA CAVA: Normal flow. AORTA: No aneurysm. RIGHT KIDNEY: Normal size. Normal echogenicity. No solid or suspicious masses. No hydronephrosis. No calcifications. PERITONEAL AND RIGHT PLEURAL SPACE: No ascites or effusions. OTHER: No other significant findings. IMPRESSION: 1. Hepatomegaly with probable hepatic steatosis diffusely. 2. Cholelithiasis. TECHNICAL DOCUMENTATION: JOB ID: [id number] [employer]- All Rights Reserved Reading location - IP/workstation name: [email or web address]
== END ==
LOC: RAD 08:52
PROVIDERS: ATTEND Family Medicine
DX: R10.11 Right upper quadrant pain (principal)
CPT/HCPCS: 76705

== ENCOUNTER 2017-07-16 08:47 | Day surgery (SDC) | payer MEDICAID ==
[2017-07-15 11:57] LABS: HEMATOCRIT 42.2 % (36.0-47.0); HEMOGLOBIN 14.4 g/dL (12.0-15.5); MEAN CORPUSCULAR HEMOGLOBIN 30.4 pg (27.0-33.4); MEAN CORPUSCULAR HGB CONC 34.1 g/dL (32.0-36.0); MEAN CORPUSCULAR VOLUME 89 fl (80-97); PLATELET COUNT 295 10^3/uL (150-450); RED BLOOD COUNT 4.73 10^6/uL (3.72-5.28); RED CELL DISTRIBUTION WIDTH 13.6 % (11.5-14.0); WHITE BLOOD COUNT 7.7 10^3/uL (4.0-10.5)
[2017-07-15 12:38] LABS: ALANINE AMINOTRANSFERASE 84 U/L (9-52); ALBUMIN 4.6 g/dL (3.5-5.0); ALKALINE PHOSPHATASE 73 U/L (38-126); ANION GAP 16 (5-19); ASPARTATE AMINO TRANSFERASE 44 U/L (14-36); BILIRUBIN,DIRECT 0.3 mg/dL (0.0-0.4); BILIRUBIN,TOTAL 0.8 mg/dL (0.2-1.3); BLOOD UREA NITROGEN 12 mg/dL (7-20); CALCIUM 9.9 mg/dL (8.4-10.2); CARBON DIOXIDE 28 mmol/L (22-30); CHLORIDE 101 mmol/L (98-107); GLUCOSE 117 mg/dL (75-110); POTASSIUM 4.3 mmol/L (3.6-5.0); SODIUM 144.8 mmol/L (137-145)
[~2017-07-16 08:47] MED LIST changes: +ACETAMINOPHEN 325 MG TABLET PO PRN; +CEFOXITIN SODIUM 2 GM in DEXTROSE 5%-WATER 100 ML IV PRN; +DEXAMETHASONE SOD PHOSPHATE INJ 4 MG/1 ML VIAL ONE; -FERRIC CARBOXYMALTOSE 750 MG in NORMAL SALINE 250 ML IV PRN; +GLYCOPYRROLATE INJ 0.4 MG/2 ML VIAL ONE; +KETOROLAC TROMETHAMINE 60 MG/2 ML SDV ONE; +LACTATED RINGERS 1000 ML IV PRN; +LIDOCAINE 0.5% INJ-PF (5 MG/ML) 50 ML SDV SUBCUT PRN; +LIDOCAINE 2% INJ-PF (20 MG/ML) 2 ML AMPUL ONE; +NEOSTIGMINE METHYLSULFATE 10 MG/10 ML VIAL ONE; -NORMAL SALINE 250 ML IV PRN; +ONDANSETRON HCL INJ/PF 4 MG/2 ML SDV ONE; +ROCURONIUM BROMIDE INJ 50 MG/5 ML VIAL IV ONE; +SUCCINYLCHOLINE CHLORIDE INJ 200 MG/10 ML VIAL ONE
[2017-07-16] MEDS ORDERED: BUPIVACAINE HCL 0.25 % INJ/PF (2.5 MG/1 ML) 30 ML VIAL ONE (09:13)
[2017-07-16] MEDS ORDERED: FENTANYL CITRATE INJ/PF 100 MCG/2 ML AMPUL ONE (10:16)
[2017-07-16] MEDS ORDERED: PROPOFOL INJ 200 MG/20 ML VIAL IV ONE (10:16)
[2017-07-16] MEDS ORDERED: ACETAMINOPHEN 100 ML IV ONE (10:16)
[2017-07-16] MEDS ORDERED: HYDROMORPHONE HCL INJ/PF 2 MG/ML AMPULE ONE (10:16)
[2017-07-16] MEDS ORDERED: MIDAZOLAM 2 MG/2 ML INJ ONE (10:16)
[2017-07-16] MEDS ORDERED: MORPHINE SULFATE 10 MG/ML INJ IV PRN (11:09)
[2017-07-16] MEDS ORDERED: FENTANYL CITRATE INJ/PF 100 MCG/2 ML AMPUL IV PRN ×3 (11:09)
[2017-07-16] MEDS ORDERED: MEPERIDINE HCL/PF INJ 25 MG/1 ML DISP.SYRIN IV PRN (11:09)
[2017-07-16] MEDS ORDERED: PROMETHAZINE HCL INJ 25 MG/1 ML VIAL IV PRN (11:09)
[2017-07-16] MEDS ORDERED: DIPHENHYDRAMINE HCL 50 MG/ML VIAL IV PRN (11:09)
--- NOTE | 2017-07-16 12:07 | Operative Report ---
Nonrecallable Operative Report DATE OF SURGERY: 07/16/17 PREOPERATIVE DIAGNOSIS: Symptomatic cholelithiasis POSTOPERATIVE DIAGNOSIS: Same as above OPERATION: Laparoscopic cholecystectomy SURGEON: JARED FAROOQ 1ST ROTARY SURFACE GRINDER: DARIA LUCIO ANESTHESIA: GA TISSUE REMOVED OR ALTERED: Gallbladder COMPLICATIONS: None apparent ESTIMATED BLOOD LOSS: Minimal PROCEDURE: Drains/implants: None. After informed consent was obtained, the patient was laid in the supine position in the operating room. The area of the abdomen was prepped and draped in a normal sterile fashion. A 15 blade scalpel was used to create an infraumbilical incision. There was a previous scar here. The scar was completely excised. Dissection was then carried through the subcutaneous tissue using sharp and blunt dissection. The cicatrix was identified, grasped with a Mykel clamp, and retracted upwards. The linea alba fascia was incised sharply. The abdomen was entered sharply. The balloon trocar was inserted, and pneumoperitoneum was achieved. Next, a subxiphoid 5 mm port was placed under direct laparoscopic visualization. 2 more 5 millimeter ports were placed in the right upper quadrant in similar fashion. Atraumatic graspers were placed the 5 mm ports. The gallbladder was retracted cephalad and laterally. Dissection was begun in the triangle of Calot. The cystic duct and cystic artery were fully visualized and skeletonized, single liver through the triangle. Once the critical view of safety was obtained, the cystic duct and cystic artery were clipped and cut with laparoscopic instruments. The gallbladder was then removed from the liver using Bovie electrocautery. The gallbladder was then placed into an Endo Catch bag and pulled out through the umbilicus. Camera was reinserted. The hilum was inspected. It was found to be free of any leakage of blood or bile. After this was confirmed, the 5 mm trochars were removed under direct laparoscopic visualization. The umbilical trocar was removed, and pneumoperitoneum was relieved. The infra umbilical fascia was closed using 0 Vicryl suture in [id number] fashion. The overlying skin was closed using 4-0 Vicryl Rapide suture in subcuticular fashion. Dressings were fashioned, and the procedure was concluded. All sponge, instrument, and needle counts were correct 2. Condition: Stable. Daria Lucio PAC was scrubbed and present the entirety of the procedure. She assisted with all portions of the procedure, including opening of the skin, Emigdio of the trochars, manipulation of the gallbladder, removal of the gallbladder, closure of the fascia, and closure of the skin.
[2017-07-16] MEDS ORDERED: ONDANSETRON HCL INJ/PF 4 MG/2 ML SDV ONE (12:25)
[2017-07-16] MEDS ORDERED: PROMETHAZINE HCL INJ 25 MG/1 ML VIAL ONE (12:32)
[2017-07-16 15:33] VITALS: BP 113/65
== END 2017-07-16 15:15 | disposition home or self-care (01) ==
LOC: OROUT 08:47
PROVIDERS: ATTEND Surgery
DX: K80.10 Calculus of gallbladder with chronic cholecystitis without obstruction (principal); D64.9 Anemia, unspecified; N02.8 Recurrent and persistent hematuria with other morphologic changes; G43.909 Migraine, unspecified, not intractable, without status migrainosus; M54.5 Low back pain; Z79.899 Other long term (current) drug therapy; Z78.9 Other specified health status
CPT/HCPCS: 36415; 85027; 81025; 80076; 80048; 88304 ×2; 47562; J2250; J3490 ×3; J1100; J0694; J1885; J3010; J2550; J0330; J2405; S0020; J2704; J0131; 790; J1170

== ENCOUNTER → 2017-08-13 | Outpatient (CLI) | payer MEDICAID ==
[2017-08-13 14:23] LABS: APPEARANCE,URINE CLEAR; BILIRUBIN,URINE NEGATIVE (NEGATIVE); COLOR,URINE YELLOW; GLUCOSE, URINE NEGATIVE (NEGATIVE); KETONES,URINE NEGATIVE (NEGATIVE); LEUKOCYTE ESTERASE,URINE NEGATIVE (NEGATIVE); NITRITE,URINE NEGATIVE (NEGATIVE); PROTEIN,URINE 30 mg/dL (NEGATIVE); URINE SPECIFIC GRAVITY 1.027; UROBILINOGEN,URINE NEGATIVE mg/dL (<2.0)
[2017-08-13 14:37] LABS: ALBUMIN 4.8 g/dL (3.5-5.0); ANION GAP 14 (5-19); BLOOD UREA NITROGEN 13 mg/dL (7-20); CALCIUM 10.2 mg/dL (8.4-10.2); CARBON DIOXIDE 26 mmol/L (22-30); CHLORIDE 104 mmol/L (98-107); GLUCOSE 98 mg/dL (75-110); POTASSIUM 4.5 mmol/L (3.6-5.0); SODIUM 143.5 mmol/L (137-145)
[2017-08-13 14:59] LABS: UR PRO/CREAT RATIO RESULT 0.2 mg/mg (0.0-0.2); URINE CREATININE 204.7 mg/dL (16-327); URINE PROTEIN 41.2 mg/dL (<12)
== END ==
LOC: OD 13:31
PROVIDERS: ATTEND Internal Medicine Nephrology
DX: N07.9 Hereditary nephropathy, not elsewhere classified with unspecified morphologic lesions (principal); N18.1 Chronic kidney disease, stage 1; R80.1 Persistent proteinuria, unspecified
CPT/HCPCS: 36415; 80048; 81001; 82040; 82570; 84156

== ENCOUNTER → 2018-01-20 | Outpatient (CLI) | payer MEDICAID ==
[2018-01-20 17:52] LABS: IRON 66.2 ug/dL (37-170)
[2018-01-22 04:38] LABS: HEPATITIS A AB IGM Negative (Negative); HEPATITIS B CORE AB IGM Negative (Negative); HEPATITS B SURFACE ANTIGEN Negative (Negative)
[2018-01-22 10:58] LABS: HEPATITIS C VIRUS ANTIBODY <0.1 s/co ratio (0.0-0.9)
== END ==
LOC: OD 16:48
PROVIDERS: ATTEND Internal Medicine Gastroenterology
DX: R94.5 Abnormal results of liver function studies (principal)
CPT/HCPCS: 36415; 80074; 82390; 82728; 83540; 86038; 86256

== ENCOUNTER → 2018-01-22 | Outpatient (CLI) | payer MEDICAID ==
--- NOTE | 2018-01-22 13:11 | RADIOLOGY REPORT (SQ) ---
EXAM DESCRIPTION: U/S ABDOMEN COMPLETE W/DOPPLER COMPLETED DATE/TIME: 01/22/2018 11:14 am REASON FOR STUDY: ABNORMAL RESULTS OF LIVER FUNCTION STUDIES R94.5 ABNORMAL RESULTS OF LIVER FUNCTI ON STUDIES COMPARISON: 07/01/2017 abdominal ultrasound TECHNIQUE: Dynamic and static grayscale images acquired of the abdomen and recorded on PACS. Additio nal selected color Doppler and spectral images recorded. LIMITATIONS: None. FINDINGS: PANCREAS: No masses. Visualized pancreatic duct normal caliber. LIVER: Echogenic liver from fatty infiltration or diffuse hepatocellular disease. No hepatomegaly LIVER VASCULATURE: Normal directional flow of the main portal vein and hepatic veins. GALLBLADDER: Surgically absent ULTRASOUND-DETECTED BARNES'S SIGN: Negative. INTRAHEPATIC DUCTS AND COMMON DUCT: CBD and intrahepatic ducts normal caliber. No filling defects. INFERIOR VENA CAVA: Normal flow. AORTA: No aneurysm. RIGHT KIDNEY: Normal size. Normal echogenicity. No solid or suspicious masses. No hydronephros is. No calcifications. LEFT KIDNEY: Normal size. Normal echogenicity. No solid or suspicious masses. No hydronephrosi s. No calcifications. SPLEEN: Mildly enlarged, 14 cm in length PERITONEAL AND PLEURAL SPACES: No ascites or effusions. OTHER: No other significant finding. IMPRESSION: Echogenic liver from fatty infiltration or diffuse hepatocellular disease Post cholecystectomy Mild splenomegaly TECHNICAL DOCUMENTATION: JOB ID: [id number]- All Rights Reserved Reading location - IP/workstation name: [email or web address]
== END ==
LOC: RAD 10:11
PROVIDERS: ATTEND Internal Medicine Gastroenterology
DX: R94.5 Abnormal results of liver function studies (principal)
CPT/HCPCS: 76700; 93976

== ENCOUNTER → 2018-02-19 | Outpatient (CLI) | payer MEDICAID ==
[2018-02-19 17:03] LABS: APPEARANCE,URINE SLIGHTLY-CLOUDY; BILIRUBIN,URINE NEGATIVE (NEGATIVE); COLOR,URINE YELLOW; GLUCOSE, URINE NEGATIVE (NEGATIVE); KETONES,URINE NEGATIVE (NEGATIVE); LEUKOCYTE ESTERASE,URINE NEGATIVE (NEGATIVE); NITRITE,URINE NEGATIVE (NEGATIVE); PROTEIN,URINE 100 mg/dL (NEGATIVE); URINE SPECIFIC GRAVITY 1.028; UROBILINOGEN,URINE NEGATIVE mg/dL (<2.0)
[2018-02-19 17:15] LABS: ALBUMIN 4.8 g/dL (3.5-5.0); ANION GAP 13 (5-19); BLOOD UREA NITROGEN 13 mg/dL (7-20); CALCIUM 10.3 mg/dL (8.4-10.2); CARBON DIOXIDE 29 mmol/L (22-30); CHLORIDE 101 mmol/L (98-107); GLUCOSE 110 mg/dL (75-110); POTASSIUM 4.8 mmol/L (3.6-5.0); SODIUM 142.8 mmol/L (137-145)
[2018-02-21 06:38] LABS: CREATININE URINE 250.7 mg/dL (Not Estab.); MICROALBUMIN URINE 365.1 ug/mL (Not Estab.)
== END ==
LOC: OD 15:35
PROVIDERS: ATTEND Internal Medicine Nephrology
DX: N07.9 Hereditary nephropathy, not elsewhere classified with unspecified morphologic lesions (principal); N18.1 Chronic kidney disease, stage 1; R31.9 Hematuria, unspecified; R80.1 Persistent proteinuria, unspecified
CPT/HCPCS: 36415; 80048; 81001; 82040; 82043; 82570

== ENCOUNTER → 2018-08-23 | Outpatient (CLI) | payer MEDICAID ==
[2018-08-23 18:02] LABS: APPEARANCE,URINE SLIGHTLY-CLOUDY; BILIRUBIN,URINE NEGATIVE (NEGATIVE); COLOR,URINE YELLOW; GLUCOSE, URINE NEGATIVE (NEGATIVE); KETONES,URINE NEGATIVE (NEGATIVE); LEUKOCYTE ESTERASE,URINE NEGATIVE (NEGATIVE); NITRITE,URINE NEGATIVE (NEGATIVE); PROTEIN,URINE 30 mg/dL (NEGATIVE); UROBILINOGEN,URINE NEGATIVE mg/dL (<2.0)
[2018-08-23 18:24] LABS: ANION GAP 12 (5-19); BLOOD UREA NITROGEN 13 mg/dL (7-20); CALCIUM 9.8 mg/dL (8.4-10.2); CARBON DIOXIDE 29 mmol/L (22-30); CHLORIDE 103 mmol/L (98-107); GLUCOSE 95 mg/dL (75-110); POTASSIUM 4.2 mmol/L (3.6-5.0); SODIUM 144.3 mmol/L (137-145)
[2018-08-25 12:42] LABS: CREATININE URINE 233.4 mg/dL (Not Estab.); MICROALBUMIN URINE 146.8 ug/mL (Not Estab.)
== END ==
LOC: OD 16:30
PROVIDERS: ATTEND Internal Medicine Nephrology
DX: N18.1 Chronic kidney disease, stage 1 (principal); R80.9 Proteinuria, unspecified; N02.8 Recurrent and persistent hematuria with other morphologic changes
CPT/HCPCS: 36415; 80048; 81001; 82043; 82570

== ENCOUNTER → 2018-08-26 | Outpatient (CLI) | payer MEDICAID | LOC: OD 11:34 | PROVIDERS: ATTEND Otolaryngology | DX: J30.9 Allergic rhinitis, unspecified (principal) | CPT/HCPCS: 36415; 82785; 86003 ==

== ENCOUNTER 2018-10-12 10:58 | Day surgery (SDC) | payer MEDICAID ==
[~2018-10-12 10:58] MED LIST changes: -ACETAMINOPHEN 325 MG TABLET PO PRN; +CEFAZOLIN 2 GM/D5W RTU 2 GM/50 ML RTUPB IV PRN; -CEFOXITIN SODIUM 2 GM in DEXTROSE 5%-WATER 100 ML IV PRN; -DEXAMETHASONE SOD PHOSPHATE INJ 4 MG/1 ML VIAL ONE; -GLYCOPYRROLATE INJ 0.4 MG/2 ML VIAL ONE; -KETOROLAC TROMETHAMINE 60 MG/2 ML SDV ONE; -LACTATED RINGERS 1000 ML IV PRN; -LIDOCAINE 0.5% INJ-PF (5 MG/ML) 50 ML SDV SUBCUT PRN; -LIDOCAINE 2% INJ-PF (20 MG/ML) 2 ML AMPUL ONE; -NEOSTIGMINE METHYLSULFATE 10 MG/10 ML VIAL ONE; -ONDANSETRON HCL INJ/PF 4 MG/2 ML SDV ONE; -ROCURONIUM BROMIDE INJ 50 MG/5 ML VIAL IV ONE; -SUCCINYLCHOLINE CHLORIDE INJ 200 MG/10 ML VIAL ONE
[2018-10-12] MEDS ORDERED: COCAINE HCL 4% TOPICAL SOLN 4 ML ONE (12:11)
[2018-10-12] MEDS ORDERED: OXYMETAZOLINE HCL 0.05% NASAL SPRAY 15 ML BOTTLE ONE (12:11)
[2018-10-12] MEDS ORDERED: LIDOCAINE 2%/EPINEPHRINE INJ 1.7 ML CARTRIDGE ONE (12:11)
[2018-10-12] MEDS ORDERED: FENTANYL CITRATE INJ/PF 100 MCG/2 ML AMPUL ONE ×2 (12:20→12:22)
[2018-10-12] MEDS ORDERED: CARBOXYMETHYLCELLULOSE SOD 0.5% 0.4 ML DROPERETTE ONE (12:20)
[2018-10-12] MEDS ORDERED: MIDAZOLAM 2 MG/2 ML INJ ONE (12:20)
[2018-10-12] MEDS ORDERED: ONDANSETRON HCL INJ/PF 4 MG/2 ML SDV ONE (12:20)
[2018-10-12] MEDS ORDERED: PROPOFOL INJ 200 MG/20 ML VIAL IV ONE (12:21)
[2018-10-12] MEDS ORDERED: DEXAMETHASONE SOD PHOS INJ 10 MG/1 ML VIAL ONE (12:21)
[2018-10-12] MEDS ORDERED: SUCCINYLCHOLINE CHLORIDE INJ 200 MG/10 ML VIAL ONE (12:21)
[2018-10-12] MEDS ORDERED: ROCURONIUM BROMIDE INJ 50 MG/5 ML VIAL IV ONE (12:21)
[2018-10-12] MEDS: BACITRACIN ZINC OINTMENT 15 GM ONE ×2 (13:30→13:31)
--- NOTE | 2018-10-12 14:35 | [facility] OPERATIVE REPORT E ---
[facility] Operative Report NAME: TEA ACEVEDO AGE: 33Y DATE OF SURGERY: 10/12/2018 ROOM: HISTORY: A 33-year-old female with a history of nasal dyspnea, presents today for a nasal septoplasty and inferior turbinate reduction. Informed consent was obtained from the patient. PREOPERATIVE DIAGNOSIS: 1. DEVIATED NASAL SEPTUM. 2. INFERIOR TURBINATE HYPERTROPHY. POSTOPERATIVE DIAGNOSIS: 1. DEVIATED NASAL SEPTUM. 2. INFERIOR TURBINATE HYPERTROPHY. OPERATION: 1. Nasal septoplasty. 2. Inferior turbinate reduction, right side; CPT code 97582. 3. Inferior turbinate reduction, left side; CPT 15545 SURGEON: SCOTT SOMMER MD ANESTHESIA: General via endotracheal intubation. PROCEDURE: After receiving informed consent from the patient, she was taken to the operating room and placed supine on the operating room table. After successful induction and intubation by Anesthesia, pledgets soaked with 4% cocaine placed into each nasal cavity for approximately 5 minutes, after which time they were withdrawn and the nasal septum along with the inferior turbinates were injection with 2% Xylocaine and 100,000 epinephrine. Pledgets were replaced. Patient was then prepped and draped in sterile fashion. Pledgets were removed. A 15 blade was used to make a maria esther-transfixion incision on the left side. This was carried down to the nasal floor. Next, using a Jay and then a caudal elevator, the mucoperichondrium and mucoperiosteal flap was elevated back to the sphenoid rostrum and down onto the nasal floor. The ostia-cartilage structure was using a D-knife and then a mucoperiosteal flap was elevated on the right side. Next, Hudson scissors were used to make horizontal cuts in the perpendicular plate of the ethmoid superiorly and inferiorly and this deflected septum was removed. A B-chisel was used to remove a vomer ethmoid spur. Next, attention was then directed anteriorly where an inferior quadrant spur was removed using a D-knife and then a maxillary crest spur was removed using a B-chisel. The septum was then viewed with the flaps in the place and found to be relatively straight. The maria esther-transfixion incision was closed using 4-0 Chromic and then a 4-0 plain gut whipstitch used to secure the septal flaps. Attention was then directed to the inferior turbinates where using the C-SE, intramural cauterization was performed on both inferior turbinates and then each inferior turbinate was medialized and then lateralized. This was done on both sides. Next, a silicone splint coated in bacitracin placed into each nasal cavity, secured with a 2-0 Prolene and then finally an Afrin cottonoid was placed into each nasal cavity. The patient was then given back to anesthesia who successfully extubated the patient without any complications. Estimated blood loss about 20 mL. Fluids 500 mL of crystalloid. Patient then transferred to the Postanesthesia Care Unit in stable condition, spontaneous respirations, no complications. DICTATING PHYSICIAN: SCOTT SOMMER M.D. [id number] PHY#: [id number] ID: [id number] JOB#: [id number] ACCT: [id number] cc:SCOTT SOMMER MD > MTDD
== END 2018-10-12 15:17 ==
LOC: SC 10:58
PROVIDERS: ATTEND Otolaryngology
DX: J30.9 Allergic rhinitis, unspecified (principal); J35.1 Hypertrophy of tonsils; R09.81 Nasal congestion; J34.3 Hypertrophy of nasal turbinates; J34.2 Deviated nasal septum; N02.8 Recurrent and persistent hematuria with other morphologic changes
CPT/HCPCS: 30520; 30140; J2250; J3490 ×6; J3010; J0330; J2405; J2704; J1100; J0690

== ENCOUNTER 2018-11-14 18:07 | Emergency (ER) | payer MEDICAID ==
[2018-11-14] MEDS ORDERED: OXYMETAZOLINE HCL 0.05% NASAL SPRAY 15 ML BOTTLE NASL ONE (18:59)
--- NOTE | 2018-11-14 18:59 | ER Document Report ---
ED Medical Screen (RME) - General Chief Complaint: Nose Bleed Stated Complaint: POST OP NOSE BLEED Time Seen by Provider: 11/14/18 18:52 Primary Care Provider: DORA FERREIRA MD [Primary Care Provider] - Follow up as needed TRAVEL OUTSIDE OF THE [place] IN LAST 30 DAYS: No - HPI Notes: 11/14/18 18:56 Patient is a 33-year-old female with history of anemia who presents complaining of intermittent epistaxis for the past week. Patient states that she had a septoplasty performed October 12. She did talk to her ENT provider and had an evaluation earlier this past week and was told that it may be a scab that is coming off. Patient states that she did have a couple days where she did not bleed, but for the most part has had very light bleeding intermittently. Patient states that last night she had heavy bleeding and her provider told her to come get checked out. She has tried Afrin at home with minimal relief. Patient states that at this time the bleeding is very light. Denies SOSA, fever, neck pain, URI, CP, SOB, Abd pain, dysuria, back pain, or rash. I have treated and performed a rapid initial assessment of this patient. A comprehensive ED assessment and evaluation of the patient, analysis of test results and completion of medical decision making process will be conducted by additional ED providers. PHYSICAL EXAMINATION: GENERAL: Well-appearing, well-nourished and in no acute distress. Nose/throat: there is very scant bleeding noted to left nostril. There is some scant oropharyngeal blood noted. - Related Data Allergies/Adverse Reactions: Bleach (Sodium Hypochlorite) Allergy (Verified 11/14/18 18:08) Hives ChloraPrep Allergy (Uncoded 11/14/18 18:08) severe hives Past Medical History - Past Medical History Cardiac Medical History: Denies: Hx Coronary Artery Disease, Hx Heart Attack, Hx Hypertension Pulmonary Medical History: Reports: Hx Bronchitis - 2010 Denies: Hx Asthma, Hx COPD, Hx Pneumonia Neurological Medical History: Denies: Hx Cerebrovascular Accident, Hx Seizures GI Medical History: Denies: Hx Hepatitis, Hx Hiatal Hernia, Hx Ulcer Musculoskeltal Medical History: Denies Hx Arthritis Infectious Medical History: Denies: Hx Hepatitis Past Surgical History: Denies: Hx Mastectomy, Hx Open Heart Surgery, Hx Pacemaker - Immunizations Hx Diphtheria, Pertussis, Tetanus Vaccination: Yes History of Influenza Vaccine for 12/2016 - 05/2017 Season: No Physical Exam - Vital signs Vitals: Temp Pulse Resp BP Pulse Ox 99.5 F 88 16 123/72 96 11/14/18 18:23 11/14/18 18:23 11/14/18 18:23 11/14/18 18:23 11/14/18 18:23 Course - Vital Signs Vital signs: Temp Pulse Resp BP Pulse Ox 99.5 F 88 16 123/72 96 11/14/18 18:23 11/14/18 18:23 11/14/18 18:23 11/14/18 18:23 11/14/18 18:23 Doctor's Discharge - Discharge Referrals: DORA FERREIRA MD [Primary Care Provider] - Follow up as needed
[2018-11-14 19:35] LABS: ABSOLUTE LYMPHOCYTES (AUTO) 2.6 10^3/uL (0.5-4.7); ABSOLUTE MONOCYTES (AUTO) 0.5 10^3/uL (0.1-1.4); ABSOLUTE NEUT (AUTO) 5.9 10^3/uL (1.7-8.2); BASOPHILS % (AUTO) 0.3 % (0-2); EOSINOPHILS % (AUTO) 0.5 % (0-6); HEMATOCRIT 36.5 % (36.0-47.0); HEMOGLOBIN 12.6 g/dL (12.0-15.5); LYMPHOCYTES % (AUTO) 28.7 % (13-45); MEAN CORPUSCULAR HEMOGLOBIN 30.1 pg (27.0-33.4); MEAN CORPUSCULAR HGB CONC 34.4 g/dL (32.0-36.0); MEAN CORPUSCULAR VOLUME 88 fl (80-97); MONOCYTES % (AUTO) 5.3 % (3-13); PLATELET COUNT 370 10^3/uL (150-450); RED BLOOD COUNT 4.17 10^6/uL (3.72-5.28); RED CELL DISTRIBUTION WIDTH 13.5 % (11.5-14.0); SEGMENTED NEUTROPHILS % (AUTO) 65.2 % (42-78); TOTAL CELLS COUNTED % (AUTO) 100 %
[2018-11-14 19:39] LABS: INTERNATIONAL RATION (INR) 0.99; PROTHROMBIN TIME 13.1 SEC (11.4-15.4)
[2018-11-14 19:40] LABS: PARTIAL THROMBOPLASTIN TIME 30.9 SEC (23.5-35.8)
[2018-11-14] MEDS ORDERED: BACITRACIN ZINC OINTMENT 15 GM TP ONE (23:42)
[2018-11-14 23:59] VITALS: BP 131/62
--- NOTE | 2018-11-15 05:46 | ER Document Report ---
Entered by RACHNA WELCH SCRIBE 11/14/186 Acting as scribe for:NIR TERRY DO ED ENT - General Chief Complaint: Nose Bleed Stated Complaint: POST OP NOSE BLEED Time Seen by Provider: 11/14/18 18:52 Primary Care Provider: DORA FERREIRA MD [Primary Care Provider] - Follow up as needed SCOTT TA MD [ACTIVE STAFF] - 11/18/18 Mode of Arrival: Ambulatory Information source: Patient Notes: Patient is a 33 year old female who presents to the emergency department today with complaints of a nosebleed beginning at 0500. Patient had surgery for a deviated septum on 10/12 and has had intermittent nose bleeding since then. Patient states she has been using afrin nose spray to stop the bleeding. TRAVEL OUTSIDE OF THE [place] IN LAST 30 DAYS: No - Related Data Allergies/Adverse Reactions: Bleach (Sodium Hypochlorite) Allergy (Verified 11/14/18 18:08) Hives ChloraPrep Allergy (Uncoded 11/14/18 18:08) severe hives Past Medical History - General Information source: Patient - Social History Smoking Status: Former Smoker Chew tobacco use (# tins/day): No Frequency of alcohol use: None Drug Abuse: None Lives with: Family Family History: Reviewed & Not Pertinent Patient has suicidal ideation: No Patient has homicidal ideation: No Pulmonary Medical History: Reports: Hx Bronchitis - Immunizations Hx Diphtheria, Pertussis, Tetanus Vaccination: Yes Review of Systems - Review of Systems Constitutional: No symptoms reported EENT: See HPI, Other - nose bleed Cardiovascular: No symptoms reported Respiratory: No symptoms reported Gastrointestinal: No symptoms reported Genitourinary: No symptoms reported Female Genitourinary: No symptoms reported Musculoskeletal: No symptoms reported Skin: No symptoms reported Hematologic/Lymphatic: No symptoms reported Neurological/Psychological: No symptoms reported -: Yes All other systems reviewed and negative Physical Exam - Vital signs Vitals: Temp Pulse Resp BP Pulse Ox 99.5 F 88 16 123/72 96 11/14/18 18:23 11/14/18 18:23 11/14/18 18:23 11/14/18 18:23 11/14/18 18:23 Interpretation: Normal - General General appearance: Appears well, Alert - HEENT Head: Normocephalic, Atraumatic Eyes: Normal Pupils: PERRL Nasal: Epistaxis - on left Mouth/Lips: Normal Mucous membranes: Dry - Respiratory Respiratory status: No respiratory distress Chest status: Nontender Breath sounds: Normal Chest palpation: Normal - Cardiovascular Rhythm: Regular Heart sounds: Normal auscultation Murmur: No - Abdominal Inspection: Normal Distension: No distension Bowel sounds: Normal Tenderness: Nontender Organomegaly: No organomegaly - Back Back: Normal, Nontender - Extremities General upper extremity: Normal inspection, Nontender, Normal color, Normal ROM, Normal temperature General lower extremity: Normal inspection, Nontender, Normal color, Normal ROM, Normal temperature, Normal weight bearing. No: Tamy's sign - Neurological Neuro grossly intact: Yes Cognition: Normal Orientation: AAOx4 Pavel Coma Scale Eye Opening: Spontaneous [place] Coma Scale Verbal: Oriented [place] Coma Scale Motor: Obeys Commands Pavel Coma Scale Total: 15 Speech: Normal Motor strength normal: LUE, RUE, LLE, RLE Sensory: Normal - Psychological Associated symptoms: Normal affect, Normal mood - Skin Skin Temperature: Warm Skin Moisture: Dry Skin Color: Normal Course - Re-evaluation Re-evalutation: 11/15/18 05:44 Patient is a 33-year-old female who comes in with a nosebleed. Had recent surgery about a month ago with Dr. Ta. Patient has had intermittent nosebleeds but tonight was the worst. Blood work within normal limits. No evidence for anemia. Hemodynamically stable. Attempted to call her ENT but was unable to get a hold of them. Patient initially packed with Rhino Rocket but she could not tolerate the pressure. Packed with Merisel. Bleeding controlled. Stable for discharge. Started on Keflex. She is to follow-up with her ENT this week, probably . - Vital Signs Vital signs: Temp Pulse Resp BP Pulse Ox 98.2 F 80 17 131/62 H 98 11/14/18 23:58 11/14/18 23:58 11/14/18 23:58 11/14/18 23:58 11/14/18 23:58 - Laboratory Result Diagrams: 11/14/18 19:15 Procedures - Nosebleed Procedure Left Location: Anterior Supplies used: Packing - Attempted packing with 5.5 cm Rhino Rocket. Patient could not tolerate. Removed and placed Merisel which patient tolerated better. Bleeding controlled., Rhinorocket Discharge - Discharge Clinical Impression: Epistaxis Condition: Stable Disposition: HOME, SELF-CARE Instructions: Nosebleed Instructions ([facility]) Prescriptions: Cephalexin Monohydrate [Keflex 500 mg Capsule] 500 mg PO Q6H 5 Days capsule Referrals: DORA FERREIRA MD [Primary Care Provider] - Follow up as needed SCOTT TA MD [ACTIVE STAFF] - 11/18/18 I personally performed the services described in the documentation, reviewed and edited the documentation which was dictated to the scribe in my presence, and it accurately records my words and actions.
== END 2018-11-14 23:58 | disposition home or self-care (01) ==
LOC: ER 18:07
DX: R04.0 Epistaxis (principal); Z98.890 Other specified postprocedural states; Z87.891 Personal history of nicotine dependence
CPT/HCPCS: 99283; 36415; 85025; 85610; 85730; 30901; J3490

== ENCOUNTER 2018-11-23 03:36 | Emergency (ER) | payer MEDICAID ==
--- NOTE | 2018-11-23 03:47 | ER Document Report ---
ED ENT - General Stated Complaint: NOSE BLEED Time Seen by Provider: 11/23/18 03:47 Primary Care Provider: DORA FERREIRA MD [Primary Care Provider] - Follow up as needed Mode of Arrival: Ambulatory Information source: Patient Notes: HISTORY OF PRESENT ILLNESS: Patient is a 33-year-old female with a past medical history of recent septoplasty to repair deviated septum approximately 6 weeks ago who presents with sudden onset nosebleed prior to arrival. Patient reports she had a similar episode over a week ago, presented to the emergency department where she had nasal packing applied. She followed up with her ENT 2 days later where they performed cauterization with good results. She reports that was the left nare, now she is having bleeding from the right side. Of note, the patient was given both intranasal Afrin as well as IV TXA prior to arrival by EMS. Location: Right nare Onset: Sudden Provocation: Unknown Quality: Eating Radiation: None Severity: Severe Timing: Improving Associated symptoms: Denies known injury, no pain REVIEW OF SYSTEMS: CONSTITUTIONAL : Denies fever or chills, no sweats. Denies recent illness. EENT: Positive for nosebleeding. Denies eye, ear, throat, or mouth pain or symptoms. Denies nasal or sinus congestion. CARDIOVASCULAR: Denies chest pain. RESPIRATORY: Denies cough, cold, or chest congestion. Denies shortness of breath, difficulty breathing, or wheezing. GASTROINTESTINAL: Denies abdominal pain. Denies nausea, vomiting, or diarrhea. Denies constipation. GENITOURINARY: Denies difficulty urinating, painful urination, burning, frequency, or blood in urine. Denies vaginal bleeding, abnormal or irregular periods. MUSCULOSKELETAL: Denies neck or back pain or joint pain or swelling. SKIN: Denies rash or skin lesions. HEMATOLOGIC : Denies easy bruising or bleeding. LYMPHATIC: Denies swollen, enlarged glands. NEUROLOGICAL: Denies altered mental status or loss of consciousness. Denies headache. Denies weakness or paralysis or loss of use of either side. Denies problems with gait or speech. Denies sensory or motor loss. PSYCHIATRIC: Denies anxiety or stress or depression. All other systems reviewed and negative. PHYSICAL EXAMINATION: GENERAL: Well-appearing, well-nourished and in no acute distress. HEAD: Atraumatic, normocephalic. No scalp deformity, depression, or crepitance. EYES: Pupils are 3 mm and equal/round/reactive to light, extraocular movements intact, sclera anicteric, conjunctiva are normal. ENT: Steady bleeding from the right nare without obvious clot or swelling of the nasal septum. Oropharynx clear without exudates or palatal petechia. Moist mucous membranes. No tonsil hypertrophy. NECK: Normal range of motion, supple without lymphadenopathy. LUNGS: Breath sounds present, equal, and clear to auscultation bilaterally. No wheezes, rales, or rhonchi. HEART: Regular rate and rhythm without murmurs, rubs, or gallops. 2+ peripheral pulses. Normal capillary refill. ABDOMEN: Soft, nontender, nondistended. Normoactive bowel sounds. No guarding, no rebound. No masses appreciated. BACK: Normal contour, no midline tenderness. Rectal exam deferred. PELVC: Deferred. EXTREMITIES: Normal range of motion, no pitting or edema. No cyanosis. NEUROLOGICAL: No focal neurological deficits. Moves all extremities spontaneously and on command. PSYCH: Normal mood, normal affect. No suicidal thoughts/ideations. No homicidal thoughts/ideations. No hallucinations. SKIN: Warm, dry, normal turgor, no rashes or lesions noted. ASSESSMENT AND PLAN: This patient is a 33-year-old female who presents with recurrent nasal bleeding 6 weeks after septoplasty. 1. Will hold pressure and consider nasal packing. 2. Will reassess after CBC and consider ENT consult if indicated. TRAVEL OUTSIDE OF THE [place] IN LAST 30 DAYS: No - HPI Patient complains to provider of: Nose problem Onset: Just prior to arrival Onset/Duration: Sudden Severity: None Pain Level: Denies Context: Other - Recent surgery Location of pain: Nose Associated symptoms: Nose bleed Similar symptoms previously: Yes Recently seen / treated by doctor: Yes - Related Data Allergies/Adverse Reactions: Bleach (Sodium Hypochlorite) Allergy (Verified 11/14/18 18:08) Hives ChloraPrep Allergy (Uncoded 11/14/18 18:08) severe hives Past Medical History - General Information source: Patient, Emergency Med Personnel - Social History Smoking Status: Never Smoker Chew tobacco use (# tins/day): No Frequency of alcohol use: None Drug Abuse: None Lives with: Alone Family History: Reviewed & Not Pertinent Patient has suicidal ideation: No Patient has homicidal ideation: No - Past Medical History Cardiac Medical History: Reports: None Denies: Hx Coronary Artery Disease, Hx Heart Attack, Hx Hypertension Pulmonary Medical History: Reports: Hx Bronchitis Denies: Hx Asthma, Hx COPD, Hx Pneumonia EENT Medical History: Reports: Other - Recent septoplasty by Dr. Ta Neurological Medical History: Reports: None. Denies: Hx Cerebrovascular Accident, Hx Seizures Endocrine Medical History: Reports: None Renal/ Medical History: Reports: None Malignancy Medical History: Reports: None GI Medical History: Reports: None. Denies: Hx Hepatitis, Hx Hiatal Hernia, Hx Ulcer Musculoskeletal Medical History: Reports None, Denies Hx Arthritis Skin Medical History: Reports None Psychiatric Medical History: Reports: None Traumatic Medical History: Reports: None Infectious Medical History: Reports: None. Denies: Hx Hepatitis Past Surgical History: Reports: Other - Hx of septoplasty. Denies: Hx Mastectomy, Hx Open Heart Surgery, Hx Pacemaker - Immunizations Hx Diphtheria, Pertussis, Tetanus Vaccination: Yes Review of Systems - Review of Systems Constitutional: No symptoms reported EENT: See HPI, Other - Nose bleed Cardiovascular: No symptoms reported Respiratory: No symptoms reported Gastrointestinal: No symptoms reported Genitourinary: No symptoms reported Female Genitourinary: No symptoms reported Musculoskeletal: No symptoms reported Skin: No symptoms reported Hematologic/Lymphatic: No symptoms reported Neurological/Psychological: No symptoms reported -: Yes All other systems reviewed and negative Physical Exam - Vital signs Interpretation: Normal - General General appearance: Appears well, Alert - HEENT Head: Normocephalic, Atraumatic Eyes: Normal Pupils: PERRL - Respiratory Respiratory status: No respiratory distress Chest status: Nontender Breath sounds: Normal Chest palpation: Normal - Cardiovascular Rhythm: Regular Heart sounds: Normal auscultation Murmur: No - Abdominal Inspection: Normal Distension: No distension Bowel sounds: Normal Tenderness: Nontender Organomegaly: No organomegaly - Back Back: Normal, Nontender - Extremities General upper extremity: Normal inspection, Nontender, Normal color, Normal ROM, Normal temperature General lower extremity: Normal inspection, Nontender, Normal color, Normal ROM, Normal temperature, Normal weight bearing. No: Tamy's sign - Neurological Neuro grossly intact: Yes Cognition: Normal Orientation: AAOx4 [place] Coma Scale Eye Opening: Spontaneous Pavel Coma Scale Verbal: Oriented [place] Coma Scale Motor: Obeys Commands [place] Coma Scale Total: 15 Speech: Normal Motor strength normal: LUE, RUE, LLE, RLE Sensory: Normal - Psychological Associated symptoms: Normal affect, Normal mood - Skin Skin Temperature: Warm Skin Moisture: Dry Skin Color: Normal Course - Re-evaluation Re-evalutation: 11/23/18 05:14 CBC is grossly unremarkable. I have spoken with the ENT, they will see the patient in the emergency department to cauterize the nose. Plan will be to disposition the patient after the procedure in the morning. - Laboratory Result Diagrams: 11/23/18 04:16 Laboratory results interpreted by me: 11/23/18 04:16 Hgb 11.5 L Hct 33.8 L - Consults Dr. Ta Time consulted: 05:15 Consulted provider: will come to ER - Transfer of Care Care transferred to following provider: Dr. Friedman Discharge - Discharge Clinical Impression: Epistaxis not due to trauma Condition: Good Disposition: HOME, SELF-CARE Instructions: Nosebleed Instructions ([facility]) Additional Instructions: You have been evaluated in the Emergency Department for a recurrent nosebleed. While here, you had blood work that was normal. You were seen by your ENT physician, Dr. Ta, and it is now safe to be discharged home. Please follow- up with your primary physician as instructed in 1 week to be rechecked. Return to the Emergency Department if you experience further bleeding, difficulty breathing, or any other concerning symptoms. Referrals: DORA FERREIRA MD [Primary Care Provider] - Follow up as needed Print Language: Chinese
[2018-11-23 04:33] LABS: ABSOLUTE EOSINOPHILS # (AUTO) 0.1 10^3/uL (0.0-0.6); ABSOLUTE LYMPHOCYTES (AUTO) 2.4 10^3/uL (0.5-4.7); ABSOLUTE MONOCYTES (AUTO) 0.3 10^3/uL (0.1-1.4); ABSOLUTE NEUT (AUTO) 4.1 10^3/uL (1.7-8.2); BASOPHILS % (AUTO) 0.6 % (0-2); EOSINOPHILS % (AUTO) 1.1 % (0-6); HEMATOCRIT 33.8 % (36.0-47.0); HEMOGLOBIN 11.5 g/dL (12.0-15.5); LYMPHOCYTES % (AUTO) 34.5 % (13-45); MEAN CORPUSCULAR HEMOGLOBIN 29.9 pg (27.0-33.4); MEAN CORPUSCULAR HGB CONC 34.1 g/dL (32.0-36.0); MEAN CORPUSCULAR VOLUME 88 fl (80-97); PLATELET COUNT 365 10^3/uL (150-450); RED BLOOD COUNT 3.85 10^6/uL (3.72-5.28); RED CELL DISTRIBUTION WIDTH 13.3 % (11.5-14.0); SEGMENTED NEUTROPHILS % (AUTO) 58.8 % (42-78); TOTAL CELLS COUNTED % (AUTO) 100 %
[2018-11-23] MEDS ORDERED: ONDANSETRON HCL INJ/PF 4 MG/2 ML SDV IV ONE ×3 (06:41→11:20)
[2018-11-23] MEDS ORDERED: OXYMETAZOLINE HCL 0.05% NASAL SPRAY 15 ML BOTTLE ONE (07:06)
[2018-11-23] MEDS ORDERED: RINGERS SOLUTION,LACTATED 500 ML IV PRN (07:23)
[2018-11-23] MEDS ORDERED: NORMAL SALINE 1000 ML 1,000 ML IV ONE (07:44)
[2018-11-23] MEDS ORDERED: NORMAL SALINE 1000 ML 1,000 ML IV PRN (11:33)
--- NOTE | 2018-11-23 13:31 | ER Document Report ---
Doctor's Note Notes: 11/23/18 13:30 The patient was signed out to me at shift change pending ENT referral. ENT is come in and seen the patient. However after the patient had a nose pack she went to the bathroom and fell. The patient has received another liter of fluid and is been here till about 130 today complaining of dizziness we keep given her fluids she seems to be doing well I reassessed her often. She her nose is not started to bleed again. She sustained no significant injuries from the fall and will be discharged home with somebody who can come get her. All up with ENT
[2018-11-23 14:02] VITALS: BP 90/48
--- NOTE | 2018-11-23 15:02 | PDOC CONSULTATION ---
Consultation Consult Date: 11/23/18 Provider Consulted: SCOTT SOMMER Consult reason:: Epistaxis History of Present Illness Admission Date/PCP: DORA FERREIRA MD History of Present Illness: TEA ACEVEDO is a 33 year old female Who was referred by the emergency room for epistaxis of the right nasal cavity. The patient had a septoplasty and inferior to reduction surgery performed about 6 weeks ago. Patient states that she noticed bleeding from her right nasal cavity around midnight and was brought by the ambulance to the emergency department. We had seen the patient last week for bleeding from the left nasal cavity and placed an absorbable packing. The patient states that she tried to stop the bleeding at home without success. She has not had epistaxis from that right side and today. Past Medical History Cardiac Medical History: Reports: None Denies: Coronary Artery Disease, Myocardial Infarction, Hypertension Pulmonary Medical History: Reports: Bronchitis Denies: Asthma, Chronic Obstructive Pulmonary Disease (COPD), Pneumonia Neurological Medical History: Reports: None Denies: Seizures Endocrine Medical History: Reports: None Renal/ Medical History: Reports: None Malignancy Medical History: Reports: None GI Medical History: Reports: None Denies: Hepatitis, Hiatal Hernia Musculoskeltal Medical History: Reports: None Denies: Arthritis Skin Medical History: Reports: None Psychiatric Medical History: Reports: None Traumatic Medical History: Reports: None Hematology: Reports: Anemia Denies: Sickle Cell Disease Infectious Medical History: Reports: None Past Surgical History Past Surgical History: Reports: Other - Hx of septoplasty Denies: Amputation, Mastectomy, Pacemaker Social History Lives with: Alone Smoking Status: Never Smoker Family History Family History: None, Reviewed & Not Pertinent Parental Family History Reviewed: Yes Children Family History Reviewed: Yes Sibling(s) Family History Reviewed.: Yes Medication/Allergy Home Medications: Diphenhydramine HCl [Benadryl] 25 mg PO ASDIR PRN 07/28/16 Cetirizine HCl [Zyrtec 10 mg Tablet] 1 tab PO BID 07/15/17 Cyanocobalamin (Vitamin B-12) [Vitamin B-12 Inj 1000 Mcg/1 ml Vial] 1,000 mcg IM .MONTHLY 07/15/17 Erenumab-Aooe [Aimovig Autoinjector] 140 mg SQ .QMONTHLY 10/07/18 Fluoxetine HCl [Prozac] 20 mg PO BID 10/07/18 Ibuprofen [Motrin 400 mg Tablet] 400 mg PO ASDIR PRN 10/07/18 Mometasone Furoate 17 gm NS BID 10/07/18 Montelukast Sodium [Singulair 10 mg Tablet] 10 mg PO BID 10/07/18 Hydrocodone/Acetaminophen [[place] 5-325 mg Tablet] 1 tab PO .EVERY 6 HOURS PRN 10/12/18 Levofloxacin [Levaquin 500 mg Tablet] 500 mg PO .DAILY X7 DAYS 10/12/18 Sodium Chloride [Saline Nasal [place]] 1 spray TOP .THREE TIMES DAILY 10/12/18 Cephalexin Monohydrate [Keflex 500 mg Capsule] 500 mg PO Q6H 5 Days capsule 11/14/18 Allergies/Adverse Reactions: Bleach (Sodium Hypochlorite) Allergy (Verified 11/23/18 08:47) Hives ChloraPrep Allergy (Uncoded 11/23/18 08:47) severe hives Physical Exam Vital Signs: Temp Pulse Resp BP Pulse Ox 97.8 F 61 101/64 11/23/18 07:45 11/23/18 07:45 11/23/18 10:15 Intake & Output 11/22/18 11/23/18 11/24/18 06:59 06:59 06:59 Intake Total 2500 Balance 2500 Head exam: PRESENT: atraumatic, normocephalic Eye exam: PRESENT: EOMI, PERRLA Mouth exam: PRESENT: moist, tongue midline. ABSENT: dry mucosa, laceration, neck supple, other Additional comments: Nose: Anterior rhinoscopy reveals blood clots within the right nasal cavity. These clots are suctioned. No active bleeding. The inferior turbinate appears excoriated. The left nasal cavity reveals some mild excoriation on the inferior turbinate. Procedure: After receiving informed consent from the patient the anterior portion of the inferior turbinate on the right side was cauterized using silver nitrate. An absorbable pack was then placed into the right nasal cavity and saturated with Afrin nasal spray. An observable pack was placed into the left nasal cavity and saturated with Afrin. The patient tolerated the procedure well without any complications. Oropharynx exam reveals no evidence of bleeding. Results Laboratory Results: 11/23/18 04:16 11/23/18 04:16 WBC 7.0 RBC 3.85 Hgb 11.5 L Hct 33.8 L MCV 88 MCH 29.9 MCHC 34.1 RDW 13.3 Plt Count 365 Seg Neutrophils % 58.8 Assessment & Plan - Diagnosis (1) Epistaxis not due to trauma Is this a current diagnosis for this admission?: Yes - Plan Summary Plan Summary: Assessment: Epistaxis right nasal cavity Plan: 1. The diagnosis and treatment plan were discussed with the patient, who voiced understanding. 2. Patient is going to use Afrin nasal spray 2 sprays each nostril twice a day for 3 days, then will start nasal saline spray 2 sprays each nostril 3-4 times a day. 3. Avoid nose blowing, bending over, strenuous activity and sneezing. 4. Patient is going to follow-up in the ENT clinic in 2 weeks.
== END 2018-11-23 14:10 | disposition home or self-care (01) ==
LOC: ER 03:36
DX: R04.0 Epistaxis (principal); R42 Dizziness and giddiness; Z98.890 Other specified postprocedural states; Z79.899 Other long term (current) drug therapy; Z91.048 Other nonmedicinal substance allergy status; Z88.8 Allergy status to other drugs, medicaments and biological substances
CPT/HCPCS: 30901; 36415; 85025; C1769; J3490; J2405; J7030; J7120; 96361; 96374; 96376; 99284

== ENCOUNTER → 2018-12-23 | Outpatient (CLI) | payer MEDICAID | LOC: OD 12:00 | PROVIDERS: ATTEND Nurse Practitioner Family | DX: G43.909 Migraine, unspecified, not intractable, without status migrainosus (principal); D64.9 Anemia, unspecified | CPT/HCPCS: 36415; 82672; 83001; 83002; 84144 ==

== ENCOUNTER → 2019-02-17 | Outpatient (CLI) | payer MEDICAID ==
[2019-02-17 18:01] LABS: APPEARANCE,URINE SLIGHTLY-CLOUDY; BILIRUBIN,URINE MODERATE (NEGATIVE); COLOR,URINE YELLOW; GLUCOSE, URINE NEGATIVE (NEGATIVE); KETONES,URINE NEGATIVE (NEGATIVE); LEUKOCYTE ESTERASE,URINE NEGATIVE (NEGATIVE); NITRITE,URINE NEGATIVE (NEGATIVE); PROTEIN,URINE 100 mg/dL (NEGATIVE); URINE SPECIFIC GRAVITY 1.031; UROBILINOGEN,URINE NEGATIVE mg/dL (<2.0)
[2019-02-17 18:09] LABS: ANION GAP 12 (5-19); BLOOD UREA NITROGEN 9 mg/dL (7-20); CALCIUM 9.8 mg/dL (8.4-10.2); CARBON DIOXIDE 27 mmol/L (22-30); CHLORIDE 102 mmol/L (98-107); GLUCOSE 89 mg/dL (75-110); POTASSIUM 3.6 mmol/L (3.6-5.0)
== END ==
LOC: OD 16:15
PROVIDERS: ATTEND Internal Medicine Nephrology
DX: N18.1 Chronic kidney disease, stage 1 (principal); R31.29 Other microscopic hematuria; N08 Glomerular disorders in diseases classified elsewhere
CPT/HCPCS: 36415; 80048; 81001; 82043; 82570

== ENCOUNTER 2019-02-19 16:04 | Emergency (ER) | payer MEDICAID ==
[2019-02-19] MEDS ORDERED: IPRATROPIUM/ALBUTEROL 0.5-2.5 MG/3 ML AMPUL NEB ONE (16:28)
[2019-02-19] MEDS ORDERED: ACETAMINOPHEN 325 MG TABLET PO ONE (16:28)
[2019-02-19] MEDS ORDERED: BENZONATATE 100 MG CAPSULE PO ONE (16:32)
--- NOTE | 2019-02-19 16:35 | ER Document Report ---
HPI - HPI Time Seen by Provider: 02/19/19 16:24 Pain Level: 0 Context: Patient is a 33-year-old female who presents emergency department with a chief complaint of cough. Patient reports she has had a cough that is productive for 2 weeks. Patient reports that her phlegm is green in color. Patient denies fever but does report chills. Patient reports she has been using Mucinex with minimal relief. 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 - REPRODUCTIVE LMP: hysterectomy Reproductive: DENIES: : Past Medical History - General Information source: Patient - Social History Smoking Status: Never Smoker Chew tobacco use (# tins/day): No Frequency of alcohol use: None Drug Abuse: None Lives with: Family Family History: None, Reviewed & Not Pertinent Patient has suicidal ideation: No Patient has homicidal ideation: No - Past Medical History Cardiac Medical History: Reports: None Denies: Hx Coronary Artery Disease, Hx Heart Attack, Hx Hypertension Pulmonary Medical History: Reports: Hx Bronchitis Denies: Hx Asthma, Hx COPD, Hx Pneumonia EENT Medical History: Reports: None Neurological Medical History: Reports: None. Denies: Hx Cerebrovascular Accident, Hx Seizures Endocrine Medical History: Reports: None Renal/ Medical History: Reports: None Malignancy Medical History: Reports: None GI Medical History: Reports: None. Denies: Hx Hepatitis, Hx Hiatal Hernia, Hx Ulcer Musculoskeletal Medical History: Reports None, Denies Hx Arthritis Skin Medical History: Reports None Psychiatric Medical History: Reports: None Traumatic Medical History: Reports: None Infectious Medical History: Reports: None. Denies: Hx Hepatitis Past Surgical History: Reports: Other - Hx of septoplasty. Denies: Hx Mastectomy, Hx Open Heart Surgery, Hx Pacemaker - Immunizations Hx Diphtheria, Pertussis, Tetanus Vaccination: Yes Vertical Provider Document - CONSTITUTIONAL Agree With Documented VS: Yes Exam Limitations: No Limitations General Appearance: No Apparent Distress - INFECTION CONTROL TRAVEL OUTSIDE OF THE [place] IN LAST 30 DAYS: No - HEENT HEENT: Atraumatic, Normal ENT Exam, Normocephalic, PERRLA - NECK Neck: Normal Inspection - RESPIRATORY Notes: Expiratory wheezing noted in bilateral lower lung [place]. No rhonchi or rales. No crackles. - CARDIOVASCULAR Cardiovascular: Regular Rate, Regular Rhythm - GI/ABDOMEN Gastrointestinal: Abdomen Soft, Abdomen Non-Tender, Normal Bowel Sounds - MUSCULOSKELETAL/EXTREMETIES Musculoskeletal/Extremeties: FROM, Non-Tender - NEURO Level of Consciousness: Awake, Alert, Appropriate - DERM Integumentary: Warm, Dry, No Rash Course - Re-evaluation Re-evalutation: 02/19/19 18:30 Patient reports that the breathing treatment did not help her much and that it made her cough more. Patient is nontoxic-appearing in no acute distress. We will treat the patient for bronchitis, Tessalon Perles, dose of steroids, Tylenol and ibuprofen as needed for pain and fever. - Vital Signs Vital signs: Temp Pulse Resp BP Pulse Ox 98.6 F 80 115/85 97 02/19/19 16:21 02/19/19 16:09 02/19/19 16:09 02/19/19 16:21 - Diagnostic Test Radiology reviewed: Reports reviewed Radiology results interpreted by me: 02/19/19 18:30 Chest X-Ray 02/19/19 16:28 IMPRESSION: No acute radiographic finding in the chest. Discharge - Discharge Clinical Impression: Bronchitis Condition: Stable Disposition: HOME, SELF-CARE Additional Instructions: BRONCHITIS: You have acute bronchitis. This disease is an infection or inflammation of the air passageways in your lungs. Symptoms usually include cough, low grade fever, shortness of breath, and wheezing. The cough usually persists for a couple of weeks. Most cases of bronchitis get better without antibiotics. We prescribe antibiotics when we believe bacteria are damaging your airways, or if there's high risk the bronchitis will worsen into pneumonia. Increase your fluid intake. A cool mist humidifier may make your lungs more comfortable. An expectorant (cough medicine that loosens phlegm) can help. If you smoke, STOP!!! Recovery from bronchitis can be somewhat slow, but you should see improvement within a day or two. Repeated episodes of bronchitis may result in lung damage -- for example, chronic bronchitis, recurrent pneumonias, or emphysema. Call the doctor if you develop increasing fever, shortness of breath, chest pain, bloody sputum, or otherwise worsen. If you have not improved at all after several days, contact the physician. DECONGESTANT MEDICATION: A decongestant medicine has been prescribed. Often this medicine is combined in the same tablet with an antihistamine or expectorant. This type of medicine is helpful in treating a bad cold or sinus condition, as well as in treatment of the nasal congestion of hay fever. It is not of much benefit for lung infections. Decongestant medicines are related to stimulants. They can cause an increase in blood pressure and heart rate. Persons with heart disease and high blood pressure should not take decongestants without discussing this with the physician. If you develop palpitations, chest pain, headache, or tremors, stop the medicine and consult your physician. COUGH-SUPPRESSANT & EXPECTORANT MEDICATION: You are to use a cough medication as needed for relief of symptoms. This medicine is a combination of an expectorant (to make the mucous thinner and more easily "coughed up") and a cough suppressant (to reduce the frequency of coughing). The cough-suppressant medicine is related to narcotics. You may experience mild nausea and sleepiness. Some patients who are very sensitive to narcotics may have stomach pain from this medicine. Taking the medicine with food reduces these side effects. Do not drive or work with machinery until you know how this medicine affects you. The expectorant should have no side effects. Iodine-containing expectorants (such as organidin) should not be taken by persons with active thyroid disease unless approved by your doctor. Call the doctor if you develop shortness of breath, hives, rash, itching, lightheadedness, or severe nausea and vomiting. STEROID MEDICATION: You have been given an injection of or oral medicine of the cortisone/steroid class. This medication is used to control inflammation or allergy. Bereket t is usually only given for a short period of time, until the acute process subsides. There are usually no side effects from short-term use of cortisone-like medications. Some persons feel an increased sense of well-being and are not sleepy at bedtime. Long-term use of cortisone medications is best avoided, unless required for a severe condition. If your condition does not remit, or relapses after the course of corticosteroid medication, you should consult your physician. USE OF ACETAMINOPHEN (Tylenol): Acetaminophen may be taken for pain relief or fever control. It's much safer than aspirin, offering a wider range of "safe" dosages. It is safe during . Some brand names are Tylenol, Panadol, Datril, Anacin 3, Tempra, and Liquiprin. Acetaminophen can be repeated every four hours. The following are maximum recommended dosages: >89 pounds or adults 650 mg to 900 mg Acetaminophen can be repeated every four hours. Maximum dose not to exceed 4000 mg a day. SMOKING: If you smoke, you should stop smoking. The tar and chemicals in cigarette smoke are harmful. Smoking has been shown to cause: emphysema chronic bronchitis lung cancer mouth and throat cancer stomach and pancreas cancer premature aging defects In addition, smoking increases ear and lung infections in children of smokers. FOLLOW-UP CARE: If you have been referred to a physician for follow-up care, call the physicians office for an appointment as you were instructed or within the next two days. If you experience worsening or a significant change in your symptoms, notify the physician immediately or return to the Emergency Department at any time for re-evaluation. Prescriptions: Prednisone [Deltasone 10 mg Tablet] 10 mg PO ASDIR PRN #21 tablet PRN Reason: Referrals: KENDRA CARUSO MD [Primary Care Provider] - Follow up as needed
--- NOTE | 2019-02-19 18:10 | RADIOLOGY REPORT (SQ) ---
EXAM DESCRIPTION: CHEST 2 VIEWS COMPLETED DATE/TIME: 02/19/2019 5:13 pm REASON FOR STUDY: productive cough x 2 weeks COMPARISON: None. EXAM PARAMETERS: NUMBER OF VIEWS: two views TECHNIQUE: Digital Frontal and Lateral radiographic views of the chest acquired. RADIATION DOSE: NA LIMITATIONS: none FINDINGS: LUNGS AND PLEURA: No consolidation, pneumothorax or pleural effusion. MEDIASTINUM AND HILAR STRUCTURES: No masses or contour abnormalities. HEART AND VASCULAR STRUCTURES: Heart normal size. No evidence for failure. BONES: No acute findings. HARDWARE: None in the chest. IMPRESSION: No acute radiographic finding in the chest. TECHNICAL DOCUMENTATION: JOB ID: [id number] [email or web address]- All Rights Reserved Reading location - IP/workstation name: [email or web address]
[2019-02-19 18:48] VITALS: BP 112/84
== END 2019-02-19 18:48 | disposition home or self-care (01) ==
LOC: ER 16:04
DX: J40 Bronchitis, not specified as acute or chronic (principal); R05 Cough
CPT/HCPCS: 71046; J3490 ×2; J7620; 94640; 99284

== ENCOUNTER → 2019-12-26 | Outpatient (CLI) | payer MEDICAID ==
[2019-12-27 13:41] LABS: ANTINUCLEAR ANTIBODIES Negative (Negative)
== END ==
LOC: OD 12:56
PROVIDERS: ATTEND Nurse Practitioner Family
DX: Z11.2 Encounter for screening for other bacterial diseases (principal); H04.123 Dry eye syndrome of bilateral lacrimal glands; R63.4 Abnormal weight loss
CPT/HCPCS: 36415; 85652; 86038; 86140; 86431; 87070

== ENCOUNTER → 2020-01-03 | Outpatient (CLI) | payer MEDICAID ==
[2020-01-03 17:14] LABS: APPEARANCE,URINE CLEAR; BILIRUBIN,URINE NEGATIVE (NEGATIVE); COLOR,URINE YELLOW; GLUCOSE, URINE NEGATIVE (NEGATIVE); KETONES,URINE NEGATIVE (NEGATIVE); LEUKOCYTE ESTERASE,URINE NEGATIVE (NEGATIVE); NITRITE,URINE NEGATIVE (NEGATIVE); PROTEIN,URINE 30 mg/dL (NEGATIVE); URINE SPECIFIC GRAVITY 1.025
[2020-01-03 17:24] LABS: ALBUMIN 4.2 g/dL (3.5-5.0); ANION GAP 8 (5-19); BLOOD UREA NITROGEN 13 mg/dL (7-20); CALCIUM 9.8 mg/dL (8.4-10.2); CARBON DIOXIDE 30 mmol/L (22-30); CHLORIDE 102 mmol/L (98-107); GLUCOSE 103 mg/dL (75-110); PHOSPHORUS 3.1 mg/dL (2.5-4.5); POTASSIUM 4.1 mmol/L (3.6-5.0)
== END ==
LOC: OD 16:27
PROVIDERS: ATTEND Internal Medicine Nephrology
DX: N18.1 Chronic kidney disease, stage 1 (principal)
CPT/HCPCS: 36415; 80069; 81001

== ENCOUNTER → 2020-03-30 | Outpatient (CLI) | payer MEDICAID ==
[2020-03-30 16:58] LABS: APPEARANCE,URINE SLIGHTLY-CLOUDY; BILIRUBIN,URINE NEGATIVE (NEGATIVE); COLOR,URINE YELLOW; GLUCOSE, URINE NEGATIVE (NEGATIVE); KETONES,URINE NEGATIVE (NEGATIVE); LEUKOCYTE ESTERASE,URINE NEGATIVE (NEGATIVE); NITRITE,URINE NEGATIVE (NEGATIVE); PROTEIN,URINE 100 mg/dL (NEGATIVE); URINE SPECIFIC GRAVITY 1.029; UROBILINOGEN,URINE NEGATIVE mg/dL (<2.0)
[2020-03-30 17:02] LABS: ANION GAP 10 (5-19); BLOOD UREA NITROGEN 13 mg/dL (7-20); CALCIUM 9.9 mg/dL (8.4-10.2); CARBON DIOXIDE 29 mmol/L (22-30); CHLORIDE 101 mmol/L (98-107); GLUCOSE 102 mg/dL (75-110); POTASSIUM 3.9 mmol/L (3.6-5.0)
[2020-04-02 17:36] LABS: CREATININE URINE 286.4 mg/dL (Not Estab.); MICROALBUMIN URINE 76.3 ug/mL (Not Estab.)
== END ==
LOC: OD 16:07
PROVIDERS: ATTEND Internal Medicine Nephrology
DX: N18.1 Chronic kidney disease, stage 1 (principal); N02.8 Recurrent and persistent hematuria with other morphologic changes
CPT/HCPCS: 36415; 80048; 81001; 82043; 82570